=== PATIENT | male | born 1980 | race Caucasian/White ===

== ENCOUNTER 2016-10-14 08:51 | Emergency (ER) | payer BC, MEDICAID ==
[2016-10-14 08:59] VITALS: BP 125/81
[2016-10-14] MEDS ORDERED: PROPARACAINE 0.5% OPHTH DROPS 15 ML ONE (09:25)
[2016-10-14] MEDS ORDERED: ERYTHROMYCIN OPHTH OINT 1 GM TUBE ONE (09:25)
--- NOTE | 2016-10-14 09:40 | ED Physician Documentation ---
PD HPI OPHTHO - Stated complaint Stated Complaint: R EYE REDNESS,SWELLING - Chief complaint Chief Complaint: Heent - History obtained from History obtained from: Patient - History of Present Illness Timing - onset: Yesterday Timing - details: Gradual onset, Still present Location: Right Quality / character: Aching Associated symptoms: Redness, Swelling, Tearing Contributing factors: Other (Was working yesterday with a weed whacker.) Similar symptoms before: Has not had sx before - Additional information Additional information: The patient is a 36-year-old male who presents with pain and swelling of his right eye. It started yesterday and is worse this morning. He has had redness and drainage of clear fluid. He does not wear corrective lenses. He denies headache or fever. He has no history of similar symptoms in the past. He thinks it may be related to work he was doing yesterday with a weed whacker. Review of Systems Constitutional: denies: Fever Eyes: reports: Irritation Ears: denies: Ear pain Nose: denies: Congestion Throat: denies: Sore throat GI: denies: Nausea, Vomiting Skin: denies: Rash Neurologic: denies: Headache PD PAST MEDICAL HISTORY - Past Medical History Past Medical History: Yes Cardiovascular: None Respiratory: None Neuro: None, Seizure disorder Endocrine/Autoimmune: None - Past Surgical History Past Surgical History: Yes Neuro: Other - Present Medications Home Medications: Ambulatory Orders Medication Instructions Recorded Confirmed Sertraline HCl [Zoloft] 100 mg PO DAILY 10/14/16 10/14/16 - Allergies Allergies/Adverse Reactions: Allergies Allergy/AdvReac Type Severity Reaction Status Date / Time No Known Drug Allergies Allergy Verified 10/14/16 08:59 - Social History Does the pt smoke?: Yes Smoking Status: Current every day smoker Does the pt drink ETOH?: No Does the pt have substance abuse?: No - Immunizations Immunizations: TDAP >10years/unknown PD ED PE NORMAL - Vitals Vital signs reviewed: Yes (normal) - General General: Alert and oriented X 3, Well developed/nourished - HEENT HEENT: Atraumatic, PERRL, EOMI, Pharynx benign, Other (There is swelling of the right upper eyelid, and conjunctival injection of the right eye. There is no purulent drainage. Left conjunctiva is clear. Fluorescein stain and blue light exam reveals no evidence of foreign body or corneal abrasion. The upper lid was everted and no foreign body detected.) - Neck Neck: No adenopathy - Cardiac Cardiac: RRR - Respiratory Respiratory: No respiratory distress - Derm Derm: No rash - Neuro Neuro: Alert and oriented X 3, Normal speech PD ED PE EXPANDED - Eyes Eyes: Visual acuity - see nn, PERRL, Normal accommodation, EOMI, Right eye, Eyelid swelling, No eyelid FB (everted), Injected conj/sclera, Anterior chambers clear. No: Exudate, Corneal FB, Corneal abrasion, Fluorescein uptake Results - Vitals Vitals: Oxygen O2 Source Room air PD MEDICAL DECISION MAKING - ED course Complexity details: considered differential, d/w patient ED course: The patient's presentation is most consistent with conjunctivitis of the right eye. Treatment in the emergency department included administration of erythromycin ophthalmic ointment. I discussed with him the expected course of illness, treatment with antibiotic ophthalmic ointment, as well as potentially worrisome signs or symptoms that should prompt reevaluation in the emergency department. Departure - Departure Disposition: 01 Home, Self Care Clinical Impression: Conjunctivitis, right eye Qualifiers: Conjunctivitis type: acute Acute conjunctivitis type: unspecified Qualified Code(s): H10.31 - Unspecified acute conjunctivitis, right eye Condition: Stable Instructions: ED Conjunctivitis Nonspecific Follow-Up: Ariella Baker PA-C [Provider Admit Priv/Credential] - Comments: 1) Administer antibiotic ointment in your right eye four times daily for the next two days. 2) Follow up with your primary physician or return to Emergency if not improving within two to three days, or if getting worse. Discharge Date/Time: 10/14/16 09:42
== END 2016-10-14 09:42 | disposition home or self-care (01) ==
LOC: ED 08:51
DX: H10.31 Unspecified acute conjunctivitis, right eye (principal); F17.200 Nicotine dependence, unspecified, uncomplicated
CPT/HCPCS: 99283; J3490

== ENCOUNTER 2017-06-17 14:56 | Outpatient (CLI) | payer BC | END 2017-06-17 14:57 | disposition critical access hospital (66) | LOC: EMS 14:56 | PROVIDERS: ATTEND Surgery | DX: R56.9 Unspecified convulsions (principal) | CPT/HCPCS: A0425; A0429 ==

== ENCOUNTER 2017-06-17 15:06 | Emergency (ER) | payer BC ==
[2017-06-17] MEDS ORDERED: SODIUM CHLORIDE 0.9% 1,000 ML IV ONE (15:13)
--- NOTE | 2017-06-17 15:15 | ED Physician Documentation ---
PD HPI SEIZURE - Stated complaint Stated Complaint: SZ ? - History obtained from History obtained from: Patient, EMS - History of Present Illness Timing - onset: Other (37-year-old gentleman with history of seizure disorder. He was recently jailed and he says well in detention he was not getting his Depakote. He restarted it last night. Last seizure was in 2016. He was driving today and started to have an auditory aura and pulled over. Apparently called someone and that was forwarded to I,, he does not remember any of that but he was postictal when the ambulance got there. He now feels back to normal except for a headache and he feels like he is dehydrated. The headache is normal after a seizure for him. He was not incontinent.) Review of Systems Constitutional: denies: Fever, Chills Ears: reports: Reviewed and negative Cardiac: reports: Reviewed and negative Respiratory: reports: Reviewed and negative PD PAST MEDICAL HISTORY - Past Medical History Cardiovascular: None Respiratory: None Neuro: None, Seizure disorder Endocrine/Autoimmune: None - Past Surgical History Past Surgical History: Yes Neuro: Other - Present Medications Home Medications: Ambulatory Orders Medication Instructions Recorded Confirmed Sertraline HCl [Zoloft] 100 mg PO DAILY 10/14/16 06/17/[address] [Depakote Dr] 450 mg PO DAILY 06/17/17 06/17/17 - Allergies Allergies/Adverse Reactions: Allergies Allergy/AdvReac Type Severity Reaction Status Date / Time No Known Drug Allergies Allergy Verified 06/17/17 15:13 - Social History Does the pt smoke?: Yes Smoking Status: Current every day smoker Does the pt drink ETOH?: No Does the pt have substance abuse?: No - Immunizations Immunizations: TDAP >10years/unknown PD ED PE NORMAL - Vitals Vital signs reviewed: Yes - General General: Alert and oriented X 3, No acute distress - HEENT HEENT: PERRL, EOMI, Pharynx benign - Neck Neck: Supple, no meningeal sign, No bony TTP - Cardiac Cardiac: RRR, No murmur - Respiratory Respiratory: No respiratory distress, Clear bilaterally - Abdomen Abdomen: Non tender - Extremities Extremities: No deformity, No tenderness to palpate, Normal ROM s pain - Neuro Neuro: Alert and oriented X 3, 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 Eye Opening: Spontaneous Motor: Obeys Commands Verbal: Oriented GCS Score: 15 - Psych Psych: Normal mood, Normal affect Results - Vitals Vitals: Vital Signs - 24 hr 06/17/17 06/17/17 06/17/17 15:15 15:30 16:06 Temperature 36.9 C Heart Rate 115 H 110 H 107 H Respiratory 18 18 18 Rate Blood Pressure 113/66 132/78 H 132/78 H O2 Saturation 96 97 97 06/17/17 16:55 Temperature Heart Rate 106 H Respiratory 20 Rate Blood Pressure 125/81 H O2 Saturation 100 Oxygen O2 Source Room air - EKG (time done) 1513 Rate: Rate (enter#) (113) Rhythm: Sinus tachycardia Callahan: Normal Intervals: Normal IN QRS: LVH Ischemia: Normal ST segments Computer interpretation: Agree with computer - Labs Labs: Laboratory Tests 06/17/17 06/17/17 15:22 15:30 Sodium 135 Potassium 3.8 Chloride 100 L Carbon Dioxide 18 L Anion Gap 17.0 H BUN 14 Creatinine 1.1 Estimated GFR (MDRD) 75 L Glucose 159 H Calcium 9.7 Total Bilirubin 0.5 AST 34 ALT 25 Alkaline Phosphatase 45 Total Protein 7.6 Albumin 4.5 Globulin 3.1 Albumin/Globulin Ratio 1.5 Lipase 16 L Urine Color YELLOW Urine Clarity CLEAR Urine pH 6.0 Ur Specific [place] >=1.030 H Urine Protein 100 H Urine Glucose (UA) NEGATIVE Urine Ketones 15 H Urine Occult Blood SMALL H Urine Nitrite NEGATIVE Urine Bilirubin NEGATIVE Urine Urobilinogen 0.2 (NORMAL) Ur Leukocyte Esterase NEGATIVE Urine RBC 0-5 Urine WBC 0-3 Ur Squamous Epith Cells NONE SEEN Urine Bacteria Rare Urine Casts 0-2 Hyaline Casts Urine Mucus Moderate Strands Ur Microscopic Review INDICATED Urine Culture Comments NOT INDICATED Last Dose Date UNKNOWN Last Dose Time UNKNOWN Valproic Acid 18.6 PD MEDICAL DECISION MAKING - ED course ED course: 37-year-old gentleman with recurrent seizures, subtherapeutic Depakote level because of recent incarceration. He specifically requested no toxicology screen because he is worried that it might be positive for methamphetamines. Departure - Departure Disposition: 01 Home, Self Care Clinical Impression: Seizure, On valproic acid therapy Condition: Good Instructions: ED Seizure Recurrent Comments: As discussed, per [place] law you cannot drive for the next 6 months because of your seizures. Follow-up with your neurologist, continue your Depakote. He may want to do another level on you soon because it was low here at 18.
[2017-06-17 15:42] LABS: ALBUMIN 4.5 g/dL (3.2-5.5); ALBUMIN/GLOBULIN RATIO 1.5 (1.0-2.2); ALKALINE PHOSPHATASE 45 IU/L (42-121); ALT ALANINE AMINOTRANSFERASE 25 IU/L (10-60); AST ASPARTATE AMINOTRANSFERASE 34 IU/L (10-42); BILIRUBIN,TOTAL 0.5 mg/dL (0.2-1.0); BUN - BLOOD UREA NITROGEN 14 mg/dL (6-20); CALCIUM 9.7 mg/dL (8.5-10.3); CARBON DIOXIDE - CO2 18 mmol/L (21-32); CHLORIDE 100 mmol/L (101-111); CREATININE 1.1 mg/dL (0.6-1.2); GFR - MDRD 75 (>89); GLUCOSE 159 mg/dL (70-100); LIPASE 16 U/L (22-51); SODIUM 135 mmol/L (135-145); TOTAL PROTEIN 7.6 g/dL (6.7-8.2); VALPROIC ACID (DEPAKOTE) 18.6 ug/mL
[2017-06-17] MEDS ORDERED: VALPROATE 250 MG/5 ML SOLUTION UDC PO STA (16:07)
[2017-06-17 16:55] VITALS: BP 125/81
[2017-06-17] MEDS ORDERED: LACTATED RINGERS 1,000 ML IV STA (17:07)
[2017-06-17 17:15] LABS: BILIRUBIN,URINE NEGATIVE (NEGATIVE); GLUCOSE, URINE (UA) NEGATIVE (NEGATIVE); KETONES,URINE (UA) 15 mg/dL (NEGATIVE); LEUKOCYTE ESTERASE, URINE NEGATIVE (NEGATIVE); NITRITE,URINE NEGATIVE (NEGATIVE); OCCULT BLOOD,URINE SMALL (NEGATIVE); PROTEIN,URINE 100 mg/dL (NEGATIVE); UROBILINOGEN,URINE 0.2 (NORMAL) E.U./dL (NORMAL)
[2017-06-17 17:16] LABS: CLARITY,URINE CLEAR (CLEAR)
[2017-06-17 17:27] LABS: BACTERIA,URINE Rare /HPF (None Seen); MUCUS,URINE Moderate Strands; RBC,URINE 0-5 /HPF (0-5); SQUAMOUS EPITHELIAL CELL,UR NONE SEEN (<= Few)
[2017-06-17 17:28] LABS: CASTS, URINE 0-2 Hyaline Casts /LPF
== END 2017-06-17 17:40 | disposition home or self-care (01) ==
LOC: EDUNIT# → ED 15:06
DX: G40.909 Epilepsy, unspecified, not intractable, without status epilepticus (principal); F17.200 Nicotine dependence, unspecified, uncomplicated; R79.89 Other specified abnormal findings of blood chemistry; T42.6X6A Underdosing of other antiepileptic and sedative-hypnotic drugs, initial encounter; Z91.138 Patient's unintentional underdosing of medication regimen for other reason; Y92.149 Unspecified place in prison as the place of occurrence of the external cause
CPT/HCPCS: 36415; 80053; 80164; 81001; 83690; 93005; 99284; J3490; J7120; 81003; 87086

== ENCOUNTER 2017-10-28 19:48 | Emergency (ER) | payer BC ==
[2017-10-28] MEDS ORDERED: TETANUS/DIPHTHERIA/PERTUSSIS 0.5 ML SYRINGE IM ONE (20:07)
[2017-10-28] MEDS ORDERED: LIDOCAINE 2%-EPI 1:100000 20 ML MDV SUBQ STA (20:07)
--- NOTE | 2017-10-28 20:09 | ED Physician Documentation ---
PD HPI UPPER EXT INJURY - Stated complaint Stated Complaint: ARM LAC - Chief complaint Chief Complaint: Laceration - History obtained from History obtained from: Patient - History of Present Illness Location: Right (Right-handed gentleman who has unknown tetanus status was working on his car and metal strap lacerated his proximal right forearm anteriorly on the lateral side just prior to arrival. No other injuries.) Review of Systems Constitutional: denies: Fever, Chills Cardiac: reports: Reviewed and negative GI: denies: Abdominal Pain, Nausea PD PAST MEDICAL HISTORY - Past Medical History Past Medical History: Yes Cardiovascular: None Respiratory: None Neuro: Seizure disorder Endocrine/Autoimmune: None Psych: Depression, Anxiety, Bipolar disorder - Past Surgical History Past Surgical History: Yes Neuro: Other - Present Medications Home Medications: Ambulatory Orders Medication Instructions Recorded Confirmed Sertraline HCl [Zoloft] 100 mg PO DAILY 10/14/16 06/17/[address] [Depakote Dr] 450 mg PO DAILY 06/17/17 06/17/17 - Allergies Allergies/Adverse Reactions: Allergies Allergy/AdvReac Type Severity Reaction Status Date / Time No Known Drug Allergies Allergy Verified 06/17/17 15:13 - Social History Does the pt smoke?: Yes Smoking Status: Current every day smoker Does the pt drink ETOH?: No Does the pt have substance abuse?: Yes - Immunizations Immunizations are current?: No Immunizations: TDAP >10years/unknown PD ED PE NORMAL - Vitals Vital signs reviewed: Yes - General General: Alert and oriented X 3, No acute distress - Extremities Extremities: Other (Proximal right forearm, lateral side, distal to the antecubital fossa, there is a 2 cm linear laceration in the subcutaneous fat with normal flexor tendon strength of all 5 digits and normal sensation in all areas of the hand.) - Neuro Neuro: Alert and oriented X 3, Normal speech Results - Vitals Vitals: Vital Signs - 24 hr 10/28/17 19:51 Temperature 36.1 C L Heart Rate 72 Respiratory 16 Rate Blood Pressure 109/73 O2 Saturation 99 Oxygen O2 Source Room air Procedures - Laceration (location) R forearm Length in cm: 2 Wound type: Linear Neurovascular status: Sensory intact, Motor intact, Vascular intact Tendon involvement: Tendon intact Anesthesia: Lidocaine 1% with epi Wound Preparation: Betadine, Irrigated copiously NS Skin layer closure: Nylon, Interrupted, Size #-0 - enter number (4-0), Sutures - enter # (4) Other: Tetanus booster given Complexity: Simple PD MEDICAL DECISION MAKING - Sepsis Event Vital Signs: Vital Signs - 24 hr 10/28/17 19:51 Temperature 36.1 C L Heart Rate 72 Respiratory 16 Rate Blood Pressure 109/73 O2 Saturation 99 Oxygen O2 Source Room air Departure - Departure Disposition: 01 Home, Self Care Clinical Impression: Laceration Condition: Good Record reviewed to determine appropriate education?: Yes Instructions: ED Laceration All Comments: Come back for any signs of infection which would include: Redness, swelling, drainage, increased pain, or fevers. Follow-up with your physician in 14 days for suture removal.
[2017-10-28 20:42] VITALS: BP 142/92
== END 2017-10-28 20:41 | disposition home or self-care (01) ==
LOC: ED 19:48
DX: S51.811A Laceration without foreign body of right forearm, initial encounter (principal); W26.8XXA Contact with other sharp object(s), not elsewhere classified, initial encounter; Y92.009 Unspecified place in unspecified non-institutional (private) residence as the place of occurrence of the external cause; Z23 Encounter for immunization; F17.200 Nicotine dependence, unspecified, uncomplicated
CPT/HCPCS: 12001; 90471; 99282; 99283

== ENCOUNTER 2018-04-23 13:07 | Outpatient (CLI) | payer BC | END 2018-04-23 13:08 | disposition critical access hospital (66) | LOC: EMS 13:07 | PROVIDERS: ATTEND Surgery | DX: R56.9 Unspecified convulsions (principal); S09.90XA Unspecified injury of head, initial encounter; W07.XXXA Fall from chair, initial encounter | CPT/HCPCS: A0425; A0427 ==

== ENCOUNTER 2018-04-23 13:46 | Emergency (ER) | payer BC ==
[2018-04-23] MEDS ORDERED: SODIUM CHLORIDE 0.9% 1,000 ML IV ONE ×2 (14:18→15:46)
--- NOTE | 2018-04-23 14:20 | ED Physician Documentation ---
PD HPI SEIZURE - Stated complaint Stated Complaint: SEIZURE - Chief complaint Chief Complaint: Neuro - History obtained from History obtained from: Patient, Family, EMS - History of Present Illness Timing - onset: Today Witnessed: Witnessed Number of seizures: Single Description of seizure activity: Generalized Injury during seizure: Bit tongue History of seizures: Known seizure disorder Contributing factors: Off meds Similar symptoms before: Diagnosis (seizure) Recently seen: Not recently seen - Additional information Additional information: 38-year-old male with a prior history of substance abuse has a known seizure disorder and he has been noncompliant with his medication for about 1 year. He is now 142 days sober and he was at today when he had a he told somebody that he felt like he might have a seizure then he had a syncopal episode fell hit his head and had a seizure. He is brought to the hospital now by ambulance he has some amnesia for the event itself and is now past his postictal period. He does state that he has been working full-time on being sober he is not currently working he denies any alcohol use and he denies any illicit drug use. He states that he is taking his antidepressant and he took his usual medications this morning and he does state that he usually is only drinking coffee and he does not feel that he is had much to drink today or yesterday. Review of Systems Constitutional: denies: Fever Eyes: denies: Decreased vision Ears: denies: Ear pain Nose: denies: Rhinorrhea / runny nose, Congestion Throat: denies: Sore throat Cardiac: denies: Chest pain / pressure, Palpitations Respiratory: denies: Dyspnea, Cough GI: denies: Abdominal Pain, Nausea, Vomiting : denies: Dysuria, Frequency Skin: denies: Rash Musculoskeletal: denies: Neck pain, Back pain, Extremity pain Neurologic: reports: Syncope, Seizure, Headache, Head injury, LOC. denies: Generalized weakness, Focal weakness, Numbness PD PAST MEDICAL HISTORY - Past Medical History Past Medical History: No Cardiovascular: None Respiratory: None Neuro: Seizure disorder Endocrine/Autoimmune: None GI: None : None HEENT: None Psych: Depression, Anxiety, Bipolar disorder Musculoskeletal: None Derm: None - Past Surgical History Past Surgical History: Yes Neuro: Other - Present Medications Home Medications: Ambulatory Orders Medication Instructions Recorded Confirmed Sertraline HCl [Zoloft] 100 mg PO DAILY 10/14/16 06/17/17 Divalproex [Hernan Murray] 450 mg PO DAILY 06/17/17 06/17/17 - Allergies Allergies/Adverse Reactions: Allergies Allergy/AdvReac Type Severity Reaction Status Date / Time No Known Drug Allergies Allergy Verified 04/23/18 13:59 - Social History Does the pt smoke?: Yes Smoking Status: Current every day smoker Does the pt drink ETOH?: No Does the pt have substance abuse?: Yes - Immunizations Immunizations are current?: No Immunizations: TDAP >10years/unknown - POLST Patient has POLST: No PD ED PE NORMAL - Vitals Vital signs reviewed: Yes (tachy ) - General General: Alert and oriented X 3, No acute distress, Well developed/nourished - HEENT HEENT: PERRL, EOMI, Ears normal, Pharynx benign, Other (There is a bruise to the right forehead. The mucous membranes are dry. 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, No motor deficit, No sensory deficit, Normal speech Eye Opening: Spontaneous Motor: Obeys Commands Verbal: Oriented GCS Score: 15 - Psych Psych: Normal mood, Normal affect Results - Vitals Vitals: Vital Signs - 24 hr 04/23/18 04/23/18 04/23/18 13:53 14:06 14:36 Temperature 35.6 C L Heart Rate 112 H 105 H 88 Respiratory 15 23 24 Rate Blood Pressure 129/79 132/89 H 110/76 O2 Saturation 91 L 91 L 98 04/23/18 04/23/18 15:06 15:30 Temperature Heart Rate 86 91 Respiratory 21 25 H Rate Blood Pressure 112/77 130/87 H O2 Saturation 97 95 Oxygen O2 Source Room air - Labs Labs: Laboratory Tests 04/23/18 04/23/18 04/23/18 14:35 14:35 14:35 WBC 6.3 RBC 4.84 Hgb 15.5 Hct 45.3 MCV 93.6 MCH 32.1 H MCHC 34.3 RDW 13.4 Plt Count 246 MPV 7.6 Neut # (Auto) 4.5 Lymph # (Auto) 1.2 L Dawes # (Auto) 0.4 Eos # (Auto) 0.1 Baso # (Auto) 0.0 Absolute Nucleated RBC 0.00 Nucleated RBC % 0.1 Sodium 135 Potassium 4.1 Chloride 104 Carbon Dioxide 22 Anion Gap 9.0 BUN 18 Creatinine 1.1 Estimated GFR (MDRD) 75 L Glucose 114 H Calcium 8.9 Total Bilirubin 0.8 AST 27 ALT 24 Alkaline Phosphatase 42 Troponin I < 0.04 Total Protein 7.6 Albumin 4.2 Globulin 3.4 Albumin/Globulin Ratio 1.2 Lipase 24 Urine Color Urine Clarity Urine pH Ur Specific [place] Urine Protein Urine Glucose (UA) Urine Ketones Urine Occult Blood Urine Nitrite Urine Bilirubin Urine Urobilinogen Ur Leukocyte Esterase Urine RBC Urine WBC Ur Squamous Epith Cells Urine Bacteria Urine Casts Ur Microscopic Review Urine Culture Comments Ethyl Alcohol < 5.0 04/23/18 15:20 WBC RBC Hgb Hct MCV MCH MCHC RDW Plt Count MPV Neut # (Auto) Lymph # (Auto) Dawes # (Auto) Eos # (Auto) Baso # (Auto) Absolute Nucleated RBC Nucleated RBC % Sodium Potassium Chloride Carbon Dioxide Anion Gap BUN Creatinine Estimated GFR (MDRD) Glucose Calcium Total Bilirubin AST ALT Alkaline Phosphatase Troponin I Total Protein Albumin Globulin Albumin/Globulin Ratio Lipase Urine Color YELLOW Urine Clarity CLEAR Urine pH 6.0 Ur Specific [place] >=1.030 H Urine Protein 100 H Urine Glucose (UA) NEGATIVE Urine Ketones NEGATIVE Urine Occult Blood TRACE-LYSE Urine Nitrite NEGATIVE Urine Bilirubin NEGATIVE Urine Urobilinogen 0.2 (NORMAL) Ur Leukocyte Esterase NEGATIVE Urine RBC 0-5 Urine WBC 0-3 Ur Squamous Epith Cells NONE SEEN Urine Bacteria None Seen Urine Casts 6-10 Hyaline Casts Ur Microscopic Review INDICATED Urine Culture Comments NOT INDICATED Ethyl Alcohol - Rads (name of study) CT head without Radiology: Prelim report reviewed (Pressure: 1. No acute intracranial CT abnormality. There is no evidence of hemorrhage or mass-effect. 2. There is right frontal encephalomalacia deep to the craniotomy defect.), EMP read indepedently, See rad report Procedures - IVC sono (time) 1410 Bedside IVC sono: IVC measures (cm) (0.93), IVC collapsed c insp (cm) (complete), Dehydration (est 2 liter deficit) PD MEDICAL DECISION MAKING - ED course Complexity details: reviewed old records, reviewed results, re-evaluated patient, considered differential, d/w patient, d/w family ED course: 38-year-old male with a history of seizure disorder who has been noncompliant with his medication for the past year has had a syncopal episode and seizure following that and here in the emergency department he is found to be significantly dehydrated. He has no other specific reason to have seizure to day. He does not have URI he denies sleep deprivation denies drug or alcohol use. IV saline is begun and CT is remarkable only for the previously established encephalomalacia and no new findings. Blood work is unremarkable urinalysis shows a concentrated urine. Departure - Departure Disposition: 01 Home, Self Care Clinical Impression: Seizure, Dehydration Condition: Stable Instructions: ED Dehydration Follow-Up: Ariella Baker PA-C [Primary Care Provider] - Comments: You have had another seizure today and we have found that you are dehydrated. Do not drive or operate machinery until you have been cleared by your neurologist.
[2018-04-23 14:43] LABS: BASOPHILS % (AUTO) 0.6 %; EOSINOPHILS # (AUTO) 0.1 10^3/uL (0.0-0.7); HGB - HEMOGLOBIN 15.5 g/dL (14.0-18.0); LYMPHOCYTES # (AUTO) 1.2 10^3/uL (1.5-3.5); LYMPHOCYTES % (AUTO) 18.9 %; MEAN CORPUSCULAR HEMOGLOBIN 32.1 pg (27.0-31.0); MEAN CORPUSCULAR HGB CONC 34.3 g/dL (32.0-36.0); MEAN CORPUSCULAR VOLUME 93.6 fL (80.0-94.0); MEAN PLATELET VOLUME 7.6 fL (7.4-11.4); MONOCYTES # (AUTO) 0.4 10^3/uL (0.0-1.0); MONOCYTES % (AUTO) 6.2 %; NEUTROPHILS # (AUTO) 4.5 10^3/uL (1.5-6.6); NEUTROPHILS % (AUTO) 72.3 %; PLT - PLATELET COUNT 246 10^3/uL (130-450); RED BLOOD COUNT 4.84 10^6/uL (4.70-6.10); RED CELL DISTRIBUTION WIDTH 13.4 % (12.0-15.0); WHITE BLOOD COUNT 6.3 x10^3/uL (4.8-10.8)
[2018-04-23 14:55] LABS: ALBUMIN 4.2 g/dL (3.2-5.5); ALBUMIN/GLOBULIN RATIO 1.2 (1.0-2.2); ALKALINE PHOSPHATASE 42 IU/L (42-121); ALT ALANINE AMINOTRANSFERASE 24 IU/L (10-60); AST ASPARTATE AMINOTRANSFERASE 27 IU/L (10-42); BILIRUBIN,TOTAL 0.8 mg/dL (0.2-1.0); BUN - BLOOD UREA NITROGEN 18 mg/dL (6-20); CALCIUM 8.9 mg/dL (8.5-10.3); CARBON DIOXIDE - CO2 22 mmol/L (21-32); CHLORIDE 104 mmol/L (101-111); CREATININE 1.1 mg/dL (0.6-1.2); GFR - MDRD 75 (>89); GLUCOSE 114 mg/dL (70-100); LIPASE 24 U/L (22-51); SODIUM 135 mmol/L (135-145); TOTAL PROTEIN 7.6 g/dL (6.7-8.2)
--- NOTE | 2018-04-23 15:18 | CT Report ---
Reason: syncope head injury seizure Procedure Date: 04/23/2018 Accession Number: [id number] / [id number] Procedure: CT - Head W/O CPT Code: FULL RESULT: EXAM: CT HEAD EXAM DATE: 04/23/2018 02:50 PM. CLINICAL HISTORY: Syncope head injury seizure. COMPARISON: None. TECHNIQUE: Multiaxial CT images were obtained from the foramen magnum to the vertex. Reformats: Sagittal and coronal. IV contrast: None. In accordance with CT protocol optimization, one or more of the following dose reduction techniques were utilized for this exam: automated exposure control, adjustment of mA and/or KV based on patient size, or use of iterative reconstructive technique. FINDINGS: Parenchyma: There is right high medial frontal encephalomalacia. No clearly acute loss of ricci-white matter differentiation. There is no evidence of mass-effect. No hemorrhage. Extraaxial Spaces: Normal for age. No subdural or epidural collections identified. Ventricles: Normal in size and position. Sinuses and Orbits: Imaged paranasal sinuses, orbits, and mastoids show no significant abnormality. Bones: No evidence of fracture or calvarial defect. There is a left frontal craniotomy defect. Other: None. IMPRESSION: 1. No acute intracranial CT abnormality. There is no evidence of hemorrhage or mass-effect. 2. There is right frontal encephalomalacia deep to a craniotomy defect. RADIA
[2018-04-23 15:29] LABS: BILIRUBIN,URINE NEGATIVE (NEGATIVE); GLUCOSE, URINE (UA) NEGATIVE (NEGATIVE); KETONES,URINE (UA) NEGATIVE (NEGATIVE); LEUKOCYTE ESTERASE, URINE NEGATIVE (NEGATIVE); NITRITE,URINE NEGATIVE (NEGATIVE); OCCULT BLOOD,URINE TRACE-LYSE (NEGATIVE); PROTEIN,URINE 100 mg/dL (NEGATIVE); UROBILINOGEN,URINE 0.2 (NORMAL) E.U./dL (NORMAL)
[2018-04-23 15:30] LABS: CLARITY,URINE CLEAR (CLEAR)
[2018-04-23 15:42] LABS: BACTERIA,URINE None Seen /HPF (None Seen); CASTS, URINE 6-10 Hyaline Casts /LPF; RBC,URINE 0-5 /HPF (0-5); SQUAMOUS EPITHELIAL CELL,UR NONE SEEN (<= Few)
[2018-04-23] MEDS ORDERED: ACETAMINOPHEN 325 MG TABLET PO STA (15:49)
[2018-04-23 16:55] VITALS: BP 121/85
== END 2018-04-23 17:03 | disposition home or self-care (01) ==
LOC: ED 13:46
DX: G40.909 Epilepsy, unspecified, not intractable, without status epilepticus (principal); R55 Syncope and collapse; E86.0 Dehydration; T42.6X6A Underdosing of other antiepileptic and sedative-hypnotic drugs, initial encounter; Z91.128 Patient's intentional underdosing of medication regimen for other reason; S00.83XA Contusion of other part of head, initial encounter; W18.30XA Fall on same level, unspecified, initial encounter; G93.89 Other specified disorders of brain; F17.200 Nicotine dependence, unspecified, uncomplicated
CPT/HCPCS: 36415; 70450; 80053; 80320; 81001; 83690; 84484; 85025; 96360; 96361; 99284; A9270; 81003; 87086

== ENCOUNTER 2018-12-21 18:30 | Outpatient (CLI) | payer BC | END 2018-12-21 18:31 | disposition EMS.NT | LOC: EMS 18:30 | PROVIDERS: ATTEND Surgery | DX: R47.9 Unspecified speech disturbances (principal) ==

== ENCOUNTER 2019-01-18 16:55 | Outpatient (CLI) | payer BC ==
--- NOTE | 2019-01-19 08:17 | MRI Report ---
Reason: SEIZURE DISORDER Procedure Date: 01/18/2019 Accession Number: [id number] / [id number] Procedure: MRI - Brain W/O CPT Code: FULL RESULT: EXAM: MRI BRAIN WITHOUT CONTRAST EXAM DATE: 01/18/2019 04:50 PM. CLINICAL HISTORY: 39-year-old male. SEIZURE DISORDER. COMPARISON: CT head 01/18/2019 TECHNIQUE: Multiplanar, multisequence T1-weighted and fluid-sensitive MR sequences of the brain were performed. Sequences optimized for routine evaluation. Other: None. IV Contrast: None. FINDINGS: Brain Volume: Normal for age. Parenchyma/Dura: The patient is again noted to be status post prior right frontal craniotomy with underlying cystic encephalomalacia and gliosis involving the medial anterior right frontal lobe, particularly the right superior frontal gyrus. There is also thinning of the body of the corpus callosum (series 301 image 66). No mass, acute infarct or hemorrhage. Otherwise no white matter lesions identified elsewhere. No parenchymal foci of susceptibility artifact. No evidence of focal cortical dysplasia, heterotopia, or abnormal gyration. The hippocampi appear qualitatively symmetric and normal in size and signal. Ventricles/Cisterns: No hydrocephalus. Mild ex vacuo dilatation of the anterior body and frontal horn of the right lateral ventricle. No abnormal extra-axial fluid collection or hemorrhage. Orbits: Symmetric and unremarkable. Sella Turcica: The pituitary gland, cavernous sinuses, suprasellar cistern and optic chiasm are unremarkable. IAC: Symmetric and unremarkable. Vasculature: Normal signal flow void is seen in the major arterial structures at the skull base. Sinuses: No acute appearing sinus disease. Bones: Changes from prior right frontal craniotomy. Otherwise unremarkable. The right mastoid air cells are underpneumatized. Other: None. IMPRESSION: 1. The patient is again noted to be status post prior right frontal craniotomy with underlying cystic encephalomalacia and gliosis involving the medial anterior right frontal lobe, particularly the right superior frontal gyrus. There is likely associated thinning of the corpus callosum (series 301 image 66). The gliosis may well represent seizure focus. Recommend correlation with EEG. 2. No MRI evidence of acute or subacute infarct, acute intracranial hemorrhage, mass, midline shift, or hydrocephalus. 3. No evidence of focal cortical dysplasia, heterotopia, or abnormal gyration. The hippocampi appear qualitatively symmetric and normal in size and signal. RADIA
== END 2019-01-18 16:56 | disposition home or self-care (01) ==
LOC: DI 16:55
PROVIDERS: ATTEND Family Medicine
DX: R56.9 Unspecified convulsions (principal); G93.89 Other specified disorders of brain
CPT/HCPCS: 70551

== ENCOUNTER 2019-02-02 11:40 | Outpatient (CLI) | payer BC ==
[2019-02-02 21:39] LABS: TRICHOMONAS VAGINALIS DNA NEGATIVE (NEGATIVE)
[2019-02-03 11:46] LABS: HEPATITIS C ANTIBODY NON-REACTIVE (NON-REACTIVE)
[2019-02-03 11:47] LABS: HIV AG/AB 4TH GEN NON-REACTIVE (NON-REACTIVE)
[2019-02-06 15:52] LABS: HSV 1 IGG TYPE SPECIFIC AB 37.5 index; HSV 2 IGG TYPE SPECIFIC AB 9.6 index
== END 2019-02-02 23:59 | disposition home or self-care (01) ==
LOC: LAB.N 11:40
PROVIDERS: ATTEND Family Medicine
DX: G40.909 Epilepsy, unspecified, not intractable, without status epilepticus (principal); Z11.3 Encounter for screening for infections with a predominantly sexual mode of transmission; S06.9X9S Unspecified intracranial injury with loss of consciousness of unspecified duration, sequela
CPT/HCPCS: 36415; 80201; 81599; 86592; 86695; 86696; 86803; 87389; 87491; 87591; 87661

== ENCOUNTER 2019-02-10 21:32 | Emergency (ER) | payer BC ==
[2019-02-10 21:38] VITALS: BP 128/82
== END 2019-02-10 23:24 | disposition left against medical advice (07) ==
LOC: ED 21:32
DX: Z53.21 Procedure and treatment not carried out due to patient leaving prior to being seen by health care provider (principal)
CPT/HCPCS: 87275; 87276

== ENCOUNTER 2019-02-21 08:10 | Outpatient (CLI) | payer BC ==
[2019-02-21 12:05] LABS: BASOPHILS % (AUTO) 0.8 %; EOSINOPHILS # (AUTO) 0.2 10^3/uL (0.0-0.7); EOSINOPHILS % (AUTO) 3.4 %; HGB - HEMOGLOBIN 14.1 g/dL (14.0-18.0); LYMPHOCYTES # (AUTO) 2.8 10^3/uL (1.5-3.5); LYMPHOCYTES % (AUTO) 53.7 %; MEAN CORPUSCULAR HEMOGLOBIN 31.1 pg (27.0-31.0); MEAN CORPUSCULAR HGB CONC 32.7 g/dL (32.0-36.0); MEAN CORPUSCULAR VOLUME 95.1 fL (80.0-94.0); MEAN PLATELET VOLUME 9.6 fL (7.4-11.4); MONOCYTES # (AUTO) 0.4 10^3/uL (0.0-1.0); MONOCYTES % (AUTO) 7.8 %; NEUTROPHILS # (AUTO) 1.8 10^3/uL (1.5-6.6); NEUTROPHILS % (AUTO) 33.9 %; PLT - PLATELET COUNT 300 10^3/uL (130-450); RED BLOOD COUNT 4.53 10^6/uL (4.70-6.10); RED CELL DISTRIBUTION WIDTH 13.8 % (12.0-15.0); WHITE BLOOD COUNT 5.3 x10^3/uL (4.8-10.8)
[2019-02-21 13:03] LABS: ALBUMIN 4.1 g/dL (3.2-5.5); ALBUMIN/GLOBULIN RATIO 1.4 (1.0-2.2); BILIRUBIN,TOTAL 0.7 mg/dL (0.2-1.0); CALCIUM 8.9 mg/dL (8.5-10.3); CREATININE 0.9 mg/dL (0.6-1.2)
== END 2019-02-21 23:59 | disposition home or self-care (01) ==
LOC: LAB.N 08:10
PROVIDERS: ATTEND Family Medicine
DX: R10.13 Epigastric pain (principal)
CPT/HCPCS: 36415; 80053; 82150; 83690; 85025

== ENCOUNTER 2019-02-23 09:20 | Outpatient (CLI) | payer BC ==
[2019-02-23 19:18] LABS: H. PYLORIS ANTIGEN STL NEGATIVE (Negative)
== END 2019-02-23 23:59 | disposition home or self-care (01) ==
LOC: LAB.R 09:20
PROVIDERS: ATTEND Family Medicine
DX: R10.13 Epigastric pain (principal)
CPT/HCPCS: 82274; 87338; 87493

== ENCOUNTER 2019-04-25 10:37 | Outpatient (CLI) | payer BC ==
--- NOTE | 2019-04-26 03:16 | XRAY Report ---
Reason: FLANK PAIN,RIGHT Procedure Date: 04/25/2019 Accession Number: [id number] / [id number] Procedure: XRN - Abdomen 1 View X-Ray CPT Code: 57941 Final Report FULL RESULT: EXAM: ABDOMEN RADIOGRAPHY EXAM DATE: 04/25/2019 10:58 AM. CLINICAL HISTORY: FLANK Pain, right. COMPARISON: None. TECHNIQUE: 1 view. FINDINGS: Bowel Gas Pattern: Nonobstructive with moderate stool burden. Other: No abnormal calcifications seen. IMPRESSION: Moderate stool burden. RADIA
== END 2019-04-25 10:38 | disposition home or self-care (01) ==
LOC: DI.N 10:37
PROVIDERS: ATTEND Family Medicine
DX: R10.9 Unspecified abdominal pain (principal)
CPT/HCPCS: 74018

== ENCOUNTER 2019-05-01 09:44 | Emergency (ER) | payer BC ==
[2019-05-01 10:41] LABS: BASOPHILS % (AUTO) 0.6 %; EOSINOPHILS # (AUTO) 0.2 10^3/uL (0.0-0.7); EOSINOPHILS % (AUTO) 4.6 %; HGB - HEMOGLOBIN 14.5 g/dL (14.0-18.0); LYMPHOCYTES # (AUTO) 1.9 10^3/uL (1.5-3.5); LYMPHOCYTES % (AUTO) 38.4 %; MEAN CORPUSCULAR HEMOGLOBIN 31.2 pg (27.0-31.0); MEAN CORPUSCULAR HGB CONC 32.6 g/dL (32.0-36.0); MEAN CORPUSCULAR VOLUME 95.7 fL (80.0-94.0); MEAN PLATELET VOLUME 9.1 fL (7.4-11.4); MONOCYTES # (AUTO) 0.5 10^3/uL (0.0-1.0); MONOCYTES % (AUTO) 9.6 %; NEUTROPHILS # (AUTO) 2.3 10^3/uL (1.5-6.6); NEUTROPHILS % (AUTO) 46.4 %; PLT - PLATELET COUNT 257 10^3/uL (130-450); RED BLOOD COUNT 4.65 10^6/uL (4.70-6.10); RED CELL DISTRIBUTION WIDTH 13.4 % (12.0-15.0)
[2019-05-01 10:45] LABS: BILIRUBIN,URINE NEGATIVE (NEGATIVE); GLUCOSE, URINE (UA) NEGATIVE (NEGATIVE); KETONES,URINE (UA) NEGATIVE (NEGATIVE); LEUKOCYTE ESTERASE, URINE NEGATIVE (NEGATIVE); NITRITE,URINE NEGATIVE (NEGATIVE); OCCULT BLOOD,URINE LARGE (NEGATIVE); PROTEIN,URINE NEGATIVE (NEGATIVE); UROBILINOGEN,URINE 0.2 (NORMAL) E.U./dL (NORMAL)
[2019-05-01 10:48] LABS: CLARITY,URINE SL. CLOUDY (CLEAR)
[2019-05-01 10:51] LABS: BACTERIA,URINE Rare /HPF (None Seen); SQUAMOUS EPITHELIAL CELL,UR NONE SEEN (<= Few)
[2019-05-01 10:53] LABS: ALBUMIN 4.1 g/dL (3.2-5.5); ALBUMIN/GLOBULIN RATIO 1.4 (1.0-2.2); BILIRUBIN,TOTAL 0.8 mg/dL (0.2-1.0); CALCIUM 9.1 mg/dL (8.5-10.3); TOTAL PROTEIN 7.1 g/dL (6.7-8.2)
[2019-05-01] MEDS ORDERED: KETOROLAC 30 MG/ML VIAL IVP STA ×2 (10:53→12:27)
--- NOTE | 2019-05-01 10:55 | ED Physician Documentation ---
History of Present Illness - Stated complaint Stated Complaint: R FLANK PX - Chief complaint Chief Complaint: General - Additonal information Additional information: This is a 39-year-old male who presents with right flank pain radiating towards his groin for the last week. Patient states the pain is sharp and can be severe at times seems to come and go currently it is only mild in severity. It radiates towards his testicles, but he does not have any tenderness in his testicles. No testicular penile lesions. He did have some blood in his urine when he did a urine test in the last week, he denies any fever or pain or burning with urination. He has not had a kidney stone in the past. This morning the pain became severe so he came into the emergency department for further evaluation. He has a CT ordered by his primary care provider Dr. Moore which was set to be done this afternoon. He is a previous narcotic addict, and would prefer to avoid narcotic medications. PD PAST MEDICAL HISTORY - Past Medical History Cardiovascular: None Respiratory: None Neuro: Headaches, Seizure disorder Endocrine/Autoimmune: None GI: None : Frequency HEENT: None Psych: Depression, Anxiety, Bipolar disorder Musculoskeletal: None Derm: None - Past Surgical History Past Surgical History: Yes Neuro: Other - Present Medications Home Medications: Ambulatory Orders Medication Instructions Recorded Confirmed Sertraline HCl [Zoloft] 100 mg PO DAILY 10/14/16 06/17/[address] [Depakote Dr] 450 mg PO DAILY 06/17/17 06/17/17 Ibuprofen [Motrin] 600 mg PO Q6H PRN #30 tab 05/01/19 Ondansetron Odt [Zofran] 4 mg TL Q6H PRN #10 tablet 05/01/19 Tamsulosin [Flomax] 0.4 mg PO DAILY #14 capsule 05/01/19 - Allergies Allergies/Adverse Reactions: Allergies Allergy/AdvReac Type Severity Reaction Status Date / Time No Known Drug Allergies Allergy Verified 02/10/19 21:38 - Social History Does the pt smoke?: Yes Smoking Status: Current every day smoker Does the pt drink ETOH?: No Does the pt have substance abuse?: No - Immunizations Immunizations are current?: No Immunizations: TDAP >10years/unknown - POLST Patient has POLST: No PD ED PE NORMAL - Vitals Vital signs reviewed: Yes - General General: Alert and oriented X 3, No acute distress - HEENT HEENT: PERRL - Neck Neck: Supple, no meningeal sign - Cardiac Cardiac: RRR, No murmur - Respiratory Respiratory: Clear bilaterally - Abdomen Abdomen: Soft, Non tender, Non distended - Male Male : Other (Normal-appearing, circumcised penis. There is a reducible right inguinal hernia which is nontender. There is no testicular tenderness. Testicles are normal lie, no scrotal skin changes.) - Derm Derm: Warm and dry - Extremities Extremities: No deformity - Neuro Neuro: Alert and oriented X 3 - Psych Psych: Normal mood, Normal affect Results - Vitals Vitals: Oxygen O2 Source Room air - Labs Labs: Laboratory Tests 05/01/19 05/01/19 05/01/19 10:20 10:33 10:33 WBC 5.0 RBC 4.65 L Hgb 14.5 Hct 44.5 MCV 95.7 H MCH 31.2 H MCHC 32.6 RDW 13.4 Plt Count 257 MPV 9.1 Neut # (Auto) 2.3 Lymph # (Auto) 1.9 Mccreary # (Auto) 0.5 Eos # (Auto) 0.2 Baso # (Auto) 0.0 Absolute Nucleated RBC 0.00 Nucleated RBC % 0.0 Sodium 139 Potassium 4.0 Chloride 110 Carbon Dioxide 23 Anion Gap 6.0 BUN 18 Creatinine 1.0 Estimated GFR (MDRD) 83 L Glucose 89 Calcium 9.1 Total Bilirubin 0.8 AST 18 ALT 28 Alkaline Phosphatase 36 L Total Protein 7.1 Albumin 4.1 Globulin 3.0 Albumin/Globulin Ratio 1.4 Lipase 32 Urine Color DARK YELLOW Urine Clarity SL. CLOUDY Urine pH 6.0 Ur Specific [place] 1.025 Urine Protein NEGATIVE Urine Glucose (UA) NEGATIVE Urine Ketones NEGATIVE Urine Occult Blood LARGE H Urine Nitrite NEGATIVE Urine Bilirubin NEGATIVE Urine Urobilinogen 0.2 (NORMAL) Ur Leukocyte Esterase NEGATIVE Urine RBC 11-25 H Urine WBC 4-5 Ur Squamous Epith Cells NONE SEEN Urine Bacteria Rare Ur Microscopic Review INDICATED Urine Culture Comments NOT INDICATED - Rads (name of study) Ct abd/pelvis Radiology: Other (6mm stone in R prox ureter, no hydro) PD MEDICAL DECISION MAKING - ED course Complexity details: considered differential (nephrolithiasis, UTI, torsion, DORINA) ED course: Pt presents with classic symptoms for kidney stone, but without history of prior imaging or previous stones. No signs of torsion on exam. He is scheduled for a CT this afternoon ordered by his outpt provider, this was obtained in the ED and does show a 6mm R ureteral stone. Urine does not show infection. Kidney function is normal and labs are unremarkable. His pain is well controlled with toradol. He would like to avoid narcotic medications. I discussed expectant management, as well as urology follow up and that some stones of this size will not pass on their own. I prescribed ibuprofen, zofran, and flomax. Pt continues to be well appearing with well-controlled pain and was discharged home. Departure - Departure Disposition: Home, Self Care Clinical Impression: Kidney stone on right side Condition: Good Instructions: ED Stone Renal W Colic Follow-Up: Jose Sierra MD [Provider Admit Priv/Credential] - (For follow up on kidney stone.) Prescriptions: Ibuprofen [Motrin] 600 mg PO Q6H PRN #30 tab PRN Reason: Pain Ondansetron Odt [Zofran] 4 mg TL Q6H PRN #10 tablet PRN Reason: Nausea / Vomiting Tamsulosin [Flomax] 0.4 mg PO DAILY #14 capsule Comments: You have a 6 mm stone in your right ureter. Please take the Flomax, stay well- hydrated, and you may take ibuprofen 600 to 800 mg every 6 hours for pain, you may also try 650 mg of Tylenol every 6 hours for pain. If you develop nausea or vomiting you may use the Zofran. If you are developing severe pain not controlled by these medications, fever, or other concerning symptoms return to the please follow-up with a urologist, particularly if your symptoms are ongoing and not improving after the next week. Discharge Date/Time: 05/01/19 13:20
--- NOTE | 2019-05-01 11:37 | CT Report ---
Reason: R flank pain and hematuria Procedure Date: 05/01/2019 Accession Number: [id number] / [id number] Procedure: CT - Abdomen/Pelvis WO CPT Code: Final Report FULL RESULT: EXAM: CT ABDOMEN AND PELVIS (CT KUB) EXAM DATE: 05/01/2019 11:19 AM. CLINICAL HISTORY: Right flank pain and hematuria. COMPARISONS: None. TECHNIQUE: Routine axial helical CT imaging was performed through the abdomen and pelvis without IV contrast. Reconstructions: Coronal and sagittal. In accordance with CT protocol optimization, one or more of the following dose reduction techniques were utilized for this exam: automated exposure control, adjustment of mA and/or KV based on patient size, or use of iterative reconstructive technique. FINDINGS: Lung Bases: Unremarkable. Right Kidney/Ureter: There is a 6 mm proximal ureteral calculus without significant upstream hydroureteronephrosis and no perinephric fat stranding. An additional nonobstructing 4 mm calculus seen in the right kidney. Left Kidney/Ureter: No stones, hydronephrosis, or hydroureter. No perinephric fat stranding. Other Solid Organs: Noncontrast images of the solid organs are grossly unremarkable. Gallbladder/Bile Ducts: Unremarkable. Peritoneal Cavity: No free fluid, free air or darwin adenopathy. Bowel is grossly unremarkable. Pelvic Organs: No bladder stones or wall thickening. Noncontrast images of the visualized pelvic organs are unremarkable. Vasculature: Unremarkable. Other: None. IMPRESSION: Right 6 mm ureteral calculus without significant upstream hydroureteronephrosis. RADIA
[2019-05-01 12:39] VITALS: BP 138/77
== END 2019-05-01 13:20 | disposition home or self-care (01) ==
LOC: ED 09:44
DX: N20.2 Calculus of kidney with calculus of ureter (principal); F17.200 Nicotine dependence, unspecified, uncomplicated
CPT/HCPCS: 36415; 74176; 80053; 81001; 81003; 83690; 85025; 87086; 96374; 96376; 99281

== ENCOUNTER 2019-05-04 13:42 | Outpatient (CLI) | payer BC ==
--- NOTE | 2019-05-05 10:54 | MRI Report ---
Reason: STRAIN OF EXTENSOR MUSCLE, FASCIA, TENDON FOREARM Procedure Date: 05/04/2019 Accession Number: [id number] / [id number] Procedure: MRI - Elbow RT W/O CPT Code: Final Report FULL RESULT: EXAM: RIGHT ELBOW MRI WITHOUT CONTRAST EXAM DATE: 05/04/2019 03:12 PM. CLINICAL HISTORY: Strain of extensor muscle, fascia, tendon forearm. COMPARISON: None. TECHNIQUE: Multiplanar, multisequence T1-weighted and fluid-sensitive sequences of the elbow without contrast. Other: None. FINDINGS: Bones: No fractures or subluxations. No marrow edema. No bone lesions. Articular Cartilage: Unremarkable. Ligaments: The ulnar collateral, lateral ulnar collateral, radial collateral, and annular ligaments are intact. Tendons: The common flexor and extensor tendons are unremarkable. The distal biceps, brachialis, and triceps tendons are unremarkable. Musculature: No edema or fatty atrophy. In particular, extensor muscles of the proximal forearm appear intact without areas of abnormal increased T2 signal. Other: Mild increased T2 signal in the ulnar nerve. Cubital tunnel appears unremarkable. No masses. No effusion. The subcutaneous tissues are unremarkable. IMPRESSION: No MRI abnormalities in the elbow. Common extensor tendon appears normal. Extensor musculature at the elbow dorsally also appears unremarkable. Mild increased T2 signal in the ulnar nerve, of uncertain consequence. RADIA
== END 2019-05-04 13:43 | disposition home or self-care (01) ==
LOC: DI 13:42
PROVIDERS: ATTEND Orthopaedic Surgery Sports Medicine
DX: S56.5 Injury of other extensor muscle, fascia and tendon at forearm level (principal)

== ENCOUNTER 2019-05-28 17:41 | Outpatient (CLI) | payer BC, MEDICAID ==
--- NOTE | 2019-05-29 13:43 | CT Report ---
Reason: URETAL CALCULUS Procedure Date: 05/28/2019 Accession Number: [id number] / [id number] Procedure: CT - Abdomen/Pelvis WO CPT Code: Final Report FULL RESULT: EXAM: CT ABDOMEN AND PELVIS EXAM DATE: 05/28/2019 06:01 PM. CLINICAL HISTORY: Ureteral CALCULUS. COMPARISONS: ABDOMEN/PELVIS W/O 05/01/2019 11:16 AM. TECHNIQUE: Routine helical CT imaging was performed through the abdomen and pelvis. IV contrast: None. Enteric contrast: No. Reconstructions: Coronal and sagittal. In accordance with CT protocol optimization, one or more of the following dose reduction techniques were utilized for this exam: automated exposure control, adjustment of mA and/or KV based on patient size, or use of iterative reconstructive technique. FINDINGS: Lung Bases: Unremarkable. Liver: Normal. No masses. Gallbladder/Bile Ducts: Unremarkable. Spleen: Normal. Pancreas: Normal. Adrenal Glands: Normal. Kidneys: Right kidney: 5 x 6 mm mid ureteral nonobstructing calcification at L4 level is more inferior than previous. 4 mm nonobstructing upper pole calcification. Left kidney: Unremarkable Peritoneal Cavity/Bowel: Diverticulosis No free fluid, free air or adenopathy. No masses or acute inflammatory process. The appendix is well visualized and normal. Pelvic Organs: Prostate calcifications. Fat-containing right inguinal hernia. Fat in the left inguinal canal. The bladder and visualized pelvic organs are otherwise within normal limits. Vasculature: No aneurysms or other significant abnormality. Bones: No significant abnormality. Other: None. IMPRESSION: 1. Right 5 x 6 mm mid ureteral nonobstructing calcification at L4 level is more inferior than previous. 4 mm nonobstructing upper pole calcification. RADIA
== END 2019-05-28 17:42 | disposition home or self-care (01) ==
LOC: DI 17:41
PROVIDERS: ATTEND Urology
DX: N20.2 Calculus of kidney with calculus of ureter (principal)
CPT/HCPCS: 74176

== ENCOUNTER 2019-06-01 13:44 | Emergency (ER) | payer BC, MEDICAID ==
[2019-06-01] MEDS ORDERED: KETOROLAC 30 MG/ML VIAL IVP STA (14:42)
[2019-06-01] MEDS ORDERED: SODIUM CHLORIDE 0.9% 1,000 ML IV ONE (14:42)
[2019-06-01] MEDS ORDERED: ONDANSETRON 4 MG/2 ML VIAL IVP STA (14:42)
--- NOTE | 2019-06-01 14:43 | ED Physician Documentation ---
PD HPI ABD PAIN - Stated complaint Stated Complaint: FLANK PAIN - Chief complaint Chief Complaint: Abd Pain - History obtained from History obtained from: Patient (39-year-old gentleman with known ureteral colic, scheduled for surgery with Dr. Sierra next week, pain is uncontrolled as his nausea and he would like some Toradol and IV fluids and Zofran. Does not want any narcotics.) Review of Systems Constitutional: denies: Fever, Chills GI: reports: Abdominal Pain, Nausea, Vomiting PD PAST MEDICAL HISTORY - Past Medical History Cardiovascular: None Respiratory: None Neuro: Headaches, Seizure disorder Endocrine/Autoimmune: None GI: None : Frequency HEENT: None Psych: Depression, Anxiety, Bipolar disorder Musculoskeletal: None Derm: None - Past Surgical History Past Surgical History: Yes Neuro: Other - Present Medications Home Medications: Ambulatory Orders Medication Instructions Recorded Confirmed Sertraline HCl [Zoloft] 100 mg PO DAILY 10/14/16 06/17/[address] [Depakote Dr] 450 mg PO DAILY 06/17/17 06/17/17 Ibuprofen [Motrin] 600 mg PO Q6H PRN #30 tab 05/01/19 Ondansetron Odt [Zofran] 4 mg TL Q6H PRN #10 tablet 05/01/19 Tamsulosin [Flomax] 0.4 mg PO DAILY #14 capsule 05/01/19 Hydrocodone/Acetaminophen 1 - 2 each PO Q6H PRN #14 tablet 06/01/19 [Hydrocodon-Acetaminophen 5-325] - Allergies Allergies/Adverse Reactions: Allergies Allergy/AdvReac Type Severity Reaction Status Date / Time No Known Drug Allergies Allergy Verified 06/01/19 14:01 - Social History Does the pt smoke?: Yes Smoking Status: Current every day smoker Does the pt drink ETOH?: No Does the pt have substance abuse?: No - Immunizations Immunizations are current?: No Immunizations: TDAP >10years/unknown - POLST Patient has POLST: No PD ED PE NORMAL - Vitals Vital signs reviewed: Yes - General General: Alert and oriented X 3, No acute distress - Abdomen Abdomen: Soft, Non tender - Neuro Neuro: Alert and oriented X 3, Normal speech Results - Vitals Vitals: Vital Signs - 24 hr 06/01/19 13:57 Temperature 36.5 C Heart Rate 81 Respiratory 16 Rate Blood Pressure 142/97 H O2 Saturation 98 Oxygen O2 Source Room air - Labs Labs: Laboratory Tests 06/01/19 14:55 Sodium 139 Potassium 3.8 Chloride 106 Carbon Dioxide 22 Anion Gap 11.0 BUN 18 Creatinine 1.5 H Estimated GFR (MDRD) 52 L Glucose 94 Calcium 9.4 PD MEDICAL DECISION MAKING - ED course ED course: 39-year-old gentleman with known ureteral stone presents with pain, he was feeling much better after Toradol, but going forward given his rising creatinine actually recommend decreasing NSAIDs. Departure - Departure Disposition: Home, Self Care Clinical Impression: Renal colic Condition: Good Record reviewed to determine appropriate education?: Yes Instructions: ED Stone Renal W Colic Prescriptions: Hydrocodone/Acetaminophen [Hydrocodon-Acetaminophen 5-325] 1 - 2 each PO Q6H PRN #14 tablet PRN Reason: pain Comments: Your creatinine is climbing up, this is probably a combination of the NSAIDs and the stone itself. From here on out until you get the stone removed I would try to avoid nonsteroidal anti-inflammatory drugs such as Toradol, ibuprofen, naproxen. Return for new or worsening symptoms. Follow-up with Dr. Sierra next week as scheduled.
[2019-06-01 15:12] LABS: CALCIUM 9.4 mg/dL (8.5-10.3); CREATININE 1.5 mg/dL (0.6-1.2)
[2019-06-01 15:52] VITALS: BP 126/79
== END 2019-06-01 16:21 | disposition home or self-care (01) ==
LOC: ED 13:44
DX: N20.2 Calculus of kidney with calculus of ureter (principal); F17.200 Nicotine dependence, unspecified, uncomplicated
CPT/HCPCS: 36415; 80048; 96361; 96374; 99283

== ENCOUNTER 2020-04-08 12:47 | Emergency (ER) | payer BC, MEDICAID ==
[2020-04-08 12:55] VITALS: BP 130/70
[2020-04-08] MEDS ORDERED: BUFFERED LIDOCAINE 10 ML SYRINGE SUBQ STA (13:17)
--- NOTE | 2020-04-08 13:36 | ED Physician Documentation ---
History of Present Illness - Stated complaint Stated Complaint: right foot lac - Chief complaint Chief Complaint: Laceration - History obtained from History obtained from: Patient - History of Present Illness Timing: Prior to arrival - Additonal information Additional information: 40-year-old male presents the emergency department with a 4 cm laceration on his right medial lower leg. It was sustained this afternoon when he was fixing a chainsaw and kneeled on the ground. He did not realize that there was an open knife on the ground and his he kneeled and then moved his leg the blade to cut through his pants and into the skin. He did have a fair amount of bleeding before coming in. At this time bleeding is controlled with pressure. Last tetanus is 2018. Review of Systems Constitutional: denies: Fever Eyes: reports: Reviewed and negative Nose: reports: Reviewed and negative Throat: reports: Reviewed and negative Cardiac: reports: Reviewed and negative Respiratory: reports: Reviewed and negative GI: reports: Reviewed and negative : reports: Reviewed and negative Skin: reports: Laceration (s) (right lower medial leg) Musculoskeletal: reports: Reviewed and negative PD PAST MEDICAL HISTORY - Past Medical History Past Medical History: Yes Cardiovascular: Angina Respiratory: None Neuro: Headaches, Seizure disorder Endocrine/Autoimmune: None GI: None : Kidney stones HEENT: None Psych: Depression, Anxiety, Bipolar disorder Musculoskeletal: Chronic back pain Derm: None - Past Surgical History Past Surgical History: Yes Neuro: Other - Present Medications Home Medications: Ambulatory Orders Medication Instructions Recorded Confirmed Gabapentin 100 mg PO QPM 02/29/20 Quetiapine Fumarate [Seroquel] 300 mg PO DAILY 02/29/20 Topiramate [Topamax] 100 mg PO DAILY 02/29/20 - Allergies Allergies/Adverse Reactions: Allergies Allergy/AdvReac Type Severity Reaction Status Date / Time No Known Drug Allergies Allergy Verified 04/08/20 12:52 - Social History Does the pt smoke?: Yes Smoking Status: Current every day smoker Does the pt drink ETOH?: No Does the pt have substance abuse?: No - Immunizations Immunizations are current?: No Immunizations: TDAP >10years/unknown - POLST Patient has POLST: No PD ED PE EXPANDED - Extremities Extremities: Right leg (4 cm laceration linear vertical medial lower leg above the ankle.) Results - Vitals Vitals: Vital Signs - 24 hr 12/01/20 12:52 Temperature 36.5 C Heart Rate 77 Respiratory 16 Rate Blood Pressure 130/70 O2 Saturation 100 Oxygen O2 Source Room air Procedures - Laceration (location) right lower medial leg Length in cm: 4 Wound type: Linear Neurovascular status: Sensory intact, Motor intact, Vascular intact Tendon involvement: Tendon intact Anesthesia: Lidocaine 1% Wound Preparation: Chlorhexadine, Irrigated copiously NS Skin layer closure: [place] (5 placed) Other: Patient tolerated well, No complications, Neurovascular intact, Tetanus UTD Complexity: Simple PD MEDICAL DECISION MAKING - ED course Complexity details: reviewed results, d/w patient ED course: 40-year-old male presents the emergency department for evaluation and treatment of a 4 cm vertical linear lesion on the right lower medial leg sustained this afternoon when he kneeled on an open knife blade. The wound was not contaminated and was easily closed with 5 kamilah. His tetanus is up-to-date. Routine wound care and emergent return precautions discussed Departure - Departure Disposition: 01 Home, Self Care Clinical Impression: Laceration of leg excluding thigh Qualifiers: Encounter type: initial encounter Laterality: left Qualified Code(s): S81.812A - Laceration without foreign body, left lower leg, initial encounter Condition: Stable Record reviewed to determine appropriate education?: Yes Instructions: ED Laceration All Follow-Up: SOBIA ECHOLS MD [Provider Admit Priv/Credential] - Comments: Chinedu we placed 5 kamilah into your laceration. These kamilah should be removed in 7 to 10 days. Your tetanus is up-to-date and did not need to be updated today. You will want to be very careful wearing high heels ankle work boots as the constant pressure may irritate the wound and cause infection. These kamilah should be removed at any emergency department, urgent care or primary care office. In 24 hours you may remove the dressing wash gently with warm soap and water, apply antibiotic ointment and a simple bandage. If you have any concerns of infection, fevers redness milky drainage please return to the emergency department
== END 2020-04-08 13:51 | disposition home or self-care (01) ==
LOC: ED 12:47
DX: S81.811A Laceration without foreign body, right lower leg, initial encounter (principal); W26.0XXA Contact with knife, initial encounter; Y93.89 Activity, other specified; F17.200 Nicotine dependence, unspecified, uncomplicated
CPT/HCPCS: 12002; 99281

== ENCOUNTER 2020-04-16 12:33 | Outpatient (CLI) | payer BC, MEDICAID ==
--- NOTE | 2020-04-16 16:40 | CARDIAC PROCEDURE NOTE ---
DATE OF SERVICE: 04/16/2020 Physician: Aubree Delong MD, [facility] INDICATION: Chest pain. DESCRIPTION OF PROCEDURE: After signing informed consent, the patient underwent a Kareem-protocol treadmill stress test with nuclear myocardial perfusion imaging. RESTING HEART RATE: 64. PEAK HEART RATE: 162 (90% predicted maximum heart rate for age). RESTING BLOOD PRESSURE: 113/72. PEAK BLOOD PRESSURE: 158/66. The patient exercised for 11 minutes on a Kareem-protocol treadmill stress test. He achieved a peak heart rate of 162 (90% PMHR) and 13.44 METS. The patient had no chest pain with exertion or in recovery. The patient had mild shortness of breath, his oxygen saturation was 95-99% on room air throughout the test. He rated his perceived exertion at 14/20 at peak on the Harjeet scale. RESTING EKG: Normal sinus rhythm, left atrial enlargement, marked LVH voltage, early repolarization. EKG AT PEAK: Diffuse T-wave flattening is seen. SUMMARY: 1. Abnormal resting EKG with marked LVH. 2. Good exercise tolerance. 3. T-wave flattening occurs diffusely, this is nonspecific for ischemia by EKG criteria during an exercise stress test. 4. Nuclear images reported separately and showed: No areas of reperfusion defect or scar, LVEF normal at 61%. IMPRESSION: Normal stress test. RECOMMENDATIONS: Echocardiogram advised to evaluate his LVH by EKG. cc: HENRRY David TD: 04/16/2020 16:24 MTDClayton
--- NOTE | 2020-04-17 10:08 | Nuclear Medicine Report ---
PROCEDURE: Rest and exercise myocardial perfusion SPECT with gated imaging and ejection fraction INDICATIONS: CHEST PAIN RADIOPHARMACEUTICAL: 9.0 mCi Tc-99m Myoview IV at rest and 28.9 mCi Tc-99m Myoview IV at peak exerci se. [id number] was performed. TECHNIQUE: Radiopharmaceutical was injected at peak stress test, and also at rest. SPECT images wer e obtained. SPECT myocardial perfusion images were displayed in short axis, horizontal long axis, an d vertical long axis views. Gated images were reviewed using AutoQUANT software. COMPARISON: None available. FINDINGS: Raw data: There is good myocardial labeling by radiotracer. No significant motion artifacts. Lung- to-heart ratio is 0.36 (normal is less than 0.38 for tetrafosmin tracer). Left ventricle function: Gated images demonstrate normal left ventricle wall thickening. No segment al wall motion abnormality. No transient ischemic dilation; TID is 0.89 (normal less than 1.3). The left ventricle resting end-diastolic volume is normal. Left ventricle stress ejection fraction is 6 1%; normal values are above 45%. Myocardial perfusion: There is a small, mild, extrinsic defect in the septum in the area of the atri oventricular groove, likely secondary to attenuation artifact. There is otherwise normal distribution of activity in the left and right ventricular myocardium. No fixed or reversible perfusion defects to suggest myocardial infarction or ischemia. IMPRESSION: 1. Normal myocardial perfusion images. No evidence for myocardial ischemia or infarct. 2. Normal left ventricular volume and systolic function. 3. Please correlate with stress EKG result. PQRS ATTESTATIONS: Measure 322 - Is this imaging test primarily performed on a low-risk surgery patient for preoperative evaluation within 30 days preceding their low-risk non-cardiac surgery? Low-risk surgery is defined as cardiac or myocardial infarction less than 1%, including (but not limited to) endoscopic pr ocedures, superficial procedures, cataract surgery, and excisional breast surgery: Answer: No Measure 323 - Is this imaging test performed primarily for the monitoring of an asymptomatic patient who had percutaneous coronary intervention on the visit date or within 2 years of the visit date? An swer: No Measure 324 - Is this imaging test performed primarily for the initial detection and risk assessment on an asymptomatic, low coronary heart disease patient? Low CHD risk definition = clinicians should consider the maximum number of available patient factors used to estimate risk based on [place] (A TP III criteria), typically age, gender, diabetes, smoking status, and use of blood pressure medicati on, and integrate age appropriate estimates for missing elements, such as LDL or standard blood press ure. Answer: No Reviewed by: Augustine Goldberg MD on 04/17/2020 10:[address] [facility] Approved by: Augustine Goldberg MD on 04/17/2020 10:[address] [facility] Station ID: [id number]
== END 2020-04-16 12:34 | disposition home or self-care (01) ==
LOC: DI 12:33
PROVIDERS: ATTEND Nurse Practitioner Family
DX: R07.89 Other chest pain (principal); R94.31 Abnormal electrocardiogram [ECG] [EKG]
CPT/HCPCS: 78452; 93017; A9500

== ENCOUNTER 2020-05-07 08:18 | Outpatient (CLI) | payer BC, MEDICAID | END 2020-05-07 08:19 | disposition home or self-care (01) | LOC: DI 08:18 | PROVIDERS: ATTEND Nurse Practitioner Family | DX: I51.7 Cardiomegaly (principal); I87.8 Other specified disorders of veins | CPT/HCPCS: 93306 ==

== ENCOUNTER 2020-05-29 08:00 | Outpatient (CLI) | payer BC, MEDICAID ==
--- NOTE | 2020-05-29 21:19 | XRAY Report ---
PROCEDURE: Elbow 3 View RT INDICATIONS: RIGHT ELBOW PAIN TECHNIQUE: 3 views of the elbow were acquired. COMPARISON: 02/13/2019 FINDINGS: Bones: No fractures or dislocations. No suspicious bony lesions. Soft tissues: No elbow joint effusion. No suspicious soft tissue calcifications. IMPRESSION: Right elbow without radiographic abnormalities. Reviewed by: Kashmir Stewart MD on 05/29/2020 9:18 PM PST Approved by: Kashmir Stewart MD on 05/29/2020 9:18 PM PST Station ID: [id number]
== END 2020-05-29 23:59 | disposition home or self-care (01) ==
LOC: DI.N 08:00
PROVIDERS: ATTEND Physician Assistant
DX: M25.521 Pain in right elbow (principal)

== ENCOUNTER 2020-07-04 15:24 | Outpatient (CLI) | payer BC, MEDICAID | END 2020-07-04 15:25 | disposition home or self-care (01) | LOC: COV 15:24 | PROVIDERS: ATTEND Surgery | DX: Z01.812 Encounter for preprocedural laboratory examination (principal); K40.90 Unilateral inguinal hernia, without obstruction or gangrene, not specified as recurrent; Z20.822 Contact with and (suspected) exposure to COVID-19 ==

== ENCOUNTER 2020-07-08 08:52 | Day surgery (SDC) | payer BC, MEDICAID ==
[~2020-07-08 08:52] MED LIST: ceFAZolin 2 GM/50 ML 2 GM/50 ML BAG IV ONE
[2020-07-08] MEDS ORDERED: LACTATED RINGERS 1,000 ML IV ONE ×2 (08:55→12:04)
--- NOTE | 2020-07-08 09:56 | ANESTHESIA ---
Pre-Anesthesia VS, & Labs - Diagnosis R IH - Procedure R IHR Vital Signs: Temp Pulse Resp BP Pulse Ox 36.1 C L 76 12 126/82 H 98 07/08/20 08:56 07/08/20 08:56 07/08/20 08:56 07/08/20 08:56 07/08/20 08:56 Height: 5 ft 11 in Weight (kg): 80 kg Body Mass Index: 24.5 BMI Classification: Healthy weight - NPO >8 hours - Lab Results Lab results reviewed: Yes Home Medications and Allergies Gabapentin 100 mg PO QPM 02/29/20 Quetiapine Fumarate [Seroquel] 300 mg PO DAILY 02/29/20 Topiramate [Topamax] 100 mg PO DAILY 02/29/20 Allergies/Adverse Reactions: Allergies Allergy/AdvReac Type Severity Reaction Status Date / Time methamphetamine Allergy Unknown Verified 04/09/20 12:13 Anes History & Medical History - Anesthetic History Anesthesia Complications: reports: No previous complications Family history of Anesthesia Complications: Denies Family history of Malignant Hyperthermia: Denies - Medical History Cardiovascular: reports: Angina Pulmonary: reports: None Gastrointestinal: reports: None Urinary: reports: Kidney stones Neuro: reports: Headaches, Seizure disorder Musculoskeletal: reports: Chronic back pain Endocrine/Autoimmune: reports: None Blood Disorders: reports: None Skin: reports: None Smoking Status: Current every day smoker - Surgical History Urologic: reports: Ureterolithotomy (stones) Neurologic: reports: Other Results - EKG Results EKG Comparison: Reviewed EKG Exam General: Alert, Oriented x3, Cooperative Dental: WNL Mouth Openin Fingerbreadth Mallampati classification: I Thyromental Distance: 4-6 cm Cardiovascular: Regular rate, No murmurs Plan Anesthesia Type: General Consent for Procedure(s) Verified and Reviewed: Yes Code Status: Attempt Resuscitation ASA classification: 2-Mild systemic disease Is this case an emergency?: No
[2020-07-08] MEDS ORDERED: fentaNYL 100 MCG/2 ML VIAL ONE (09:57)
[2020-07-08] MEDS ORDERED: MIDAZOLAM 2 MG/2 ML VIAL ONE (09:57)
[2020-07-08] MEDS ORDERED: BUPIVACAINE 0.25% PF 30 ML VIAL ONE (10:18)
--- NOTE | 2020-07-08 10:31 | HISTORY & PHYSICAL EXAMINATION ---
Chief Complaint - Chief Complaint Chief Complaint: right groin bulge History of Present Illness - History Obtained From History obtained from: patient Exam Limitations: none - History of Present Illness HPI Comment/Other: right inguinal hernia for months. progressing in size and symptoms History - Past Medical History Cardiovascular: reports: Angina Respiratory: reports: None Neuro: reports: Headaches, Seizure disorder Endocrine/Autoimmune: reports: None GI: reports: None : reports: Kidney stones HEENT: reports: None Psych: reports: Depression, Anxiety, Bipolar disorder Musculoskeletal: reports: Chronic back pain Derm: reports: None MRSA Hx?: Yes - Past Surgical History Neuro: reports: Other - POLST Patient has POLST: No Meds/Allgy - Home Medications Home Medications: Ambulatory Orders Medication Instructions Recorded Confirmed Gabapentin 100 mg PO QPM 02/29/20 07/08/20 Quetiapine Fumarate [Seroquel] 300 mg PO DAILY 02/29/20 07/08/20 Topiramate [Topamax] 100 mg PO DAILY 02/29/20 07/08/20 - Allergies Allergies/Adverse Reactions: Allergies Allergy/AdvReac Type Severity Reaction Status Date / Time methamphetamine Allergy Unknown Verified 04/09/20 12:13 Review of Systems - Constitutional Constitutional: reports: Fatigue (10 pt ros as above oterwise unremarkable) Exam - Vital Signs Reviewed Vital Signs: Yes Vital Signs: Vital Signs x48h Temp Pulse Resp BP Pulse Ox 07/08/20 08:56 36.1 C L 76 12 126/82 H 98 - Physical Exam General Appearance: positive: No acute distress, Alert Eyes Bilateral: positive: Normal inspection, PERRL ENT: positive: No signs of dehydration Neck: positive: No JVD Respiratory: positive: No respiratory distress Cardiovascular: positive: Regular rate & rhythm Abdomen: positive: Non-tender, No distention, Other (right inguinal hernia present) Conclusion/Plan - Problem List (1) Hernia, inguinal Conclusion/Plan: plan open repair with mesh. parq held and consent obtained - Lab Results Lab results reviewed: Yes
[2020-07-08] MEDS ORDERED: PROPOFOL 200 MG/20 ML VIAL IVP ONE (10:54)
[2020-07-08] MEDS ORDERED: BUPIVACAINE 0.25% PF 30 ML VIAL SUBQ ONE ×2 (10:56→11:43)
[2020-07-08] MEDS ORDERED: ONDANSETRON 4 MG/2 ML VIAL ONE (10:58)
[2020-07-08] MEDS ORDERED: DEXAMETHASONE 4 MG/ML VIAL ONE (10:58)
[2020-07-08] MEDS ORDERED: ePHEDrine 50 MG/ML VIAL IVP PRN (12:14)
[2020-07-08] MEDS ORDERED: METOCLOPRAMIDE 10 MG/2 ML VIAL IVP PRN (12:14)
[2020-07-08] MEDS ORDERED: ATROPINE ABBOJECT 1 MG/10 ML SYRINGE IVP PRN (12:14)
[2020-07-08] MEDS ORDERED: NALOXONE 0.4 MG/ML VIAL IVP PRN (12:14)
[2020-07-08] MEDS ORDERED: MORPHINE 2 MG/ML CARPUJECT IVP PRN (12:14)
[2020-07-08] MEDS ORDERED: ONDANSETRON 4 MG/2 ML VIAL IVP PRN (12:14)
[2020-07-08] MEDS ORDERED: fentaNYL 100 MCG/2 ML VIAL IVP PRN (12:14)
[2020-07-08] MEDS ORDERED: HYDROmorphone 0.5 MG/0.5 ML SYRINGE IVP PRN (12:14)
[2020-07-08] MEDS ORDERED: oxyCODONE 5 MG TABLET PO PRN (12:15)
--- NOTE | 2020-07-08 12:16 | ANESTHESIA POST OP EVALUATION ---
Anesthesia Post Eval - Post Anesthesia Eval Vitals: Last Vital Signs Temp 37.1 C 07/08/20 12:14 Pulse 77 07/08/20 12:14 Resp 21 07/08/20 12:14 BP 123/91 H 07/08/20 12:14 Pulse Ox 94 07/08/20 12:14 CV Function Including HR & BP: positive: Stable Pain Control: positive: Satisfactory Nausea & Vomiting: positive: Negative Mental Status: positive: Patient Participates Respiratory Status: Airway Patent Hydration Status: Satisfactory Anesthesia Complications: positive: None
--- NOTE | 2020-07-08 12:37 | OPERATIVE REPORT ---
Operative Report - General Procedure Date: 07/08/20 Planned Procedure: open right inguinal hernia Pre-Op Diagnosis: right inguinal hernia Procedure Performed: open right inguinal hernia repair with mesh Post Op Diagnosis: recurrent and incarcerated - Procedure Note Primary Surgeon: jolanta aguilar Anesthesia Technique: General LMA, Local Estimated Blood Loss (mL): 0 Findings: bilateral inguinal scars present consistent with bilateral repair as child Complications: none
[2020-07-08] MEDS ORDERED: LACTATED RINGERS 1,000 ML IV SCH (13:00)
[2020-07-08 13:01] VITALS: BP 138/78
--- NOTE | 2020-07-08 13:04 | OPERATIVE REPORT ---
DATE OF SERVICE: 07/08/2020 Physician: Soltiario Magdaleno MD PREOPERATIVE DIAGNOSIS: Right inguinal hernia. POSTOPERATIVE DIAGNOSIS: Right inguinal hernia, recurrent and incarcerated. PROCEDURE PERFORMED: Open repair of incarcerated recurrent right inguinal hernia with mesh. SURGEON: Solitario Magdaleno MD FENCE POST CUTTER: None. ANESTHESIA: Laryngeal mask anesthesia. Local anesthesia with Marcaine. COMPLICATIONS: None. SPECIMEN: Incarcerated preperitoneal adipose tissue removed; however, not sent for pathology. ESTIMATED BLOOD LOSS: None. COMPLICATIONS: None. DRAINS: None. FINDINGS: Incarcerated direct inguinal hernia as well as incarcerated fair amount of preperitoneal adipose tissue. INDICATIONS FOR PROCEDURE: The patient is an active 40-year-old gentleman who has developed a symptomatic right inguinal hernia. He thought he may have had repair as a child. There was no apparent scar in the office or preoperatively. Consent was obtained for open repair. Risks discussed, alternatives discussed, all questions answered and consent obtained. DESCRIPTION OF PROCEDURE: The patient was properly identified and brought to the operating room and placed in supine position. Laryngeal mask anesthesia was induced. Hair was clipped and with a bright lighting scars were evident bilateral inguinal region. A decision was made to continue with open repair as consented. Risks discussed as consented. The procedure had been discussed in detail and consent obtained DETAILS OF THE PROCEDURE: The patient was prepped and draped in a sterile fashion and given preoperative antibiotics. Sequential compression devices were used. A 5 cm incision was made in the direction of Jayce's lines just cephalad of the pubic tubercle. Dissection proceeded with cutting current. The superficial epigastric vein was identified, clamped, divided, and tied with 3-0 Vicryl. Dissection proceeded down to the aponeurosis. This was opened in the direction of its fibers, extending to the external ring. Scar tissue was sharply mobilized defining the anatomy. The iliohypogastric nerve was identified and carefully protected as well as ilioinguinal nerve and the genitofemoral nerve. The cord structures were mobilized and brought up. He had a direct inguinal hernia bulge incarcerated and heavily scarred to the cord structures. This was carefully peeled away and mobilized away from surrounding tissue. The direct defect and floor was repaired and reduced with a 2-0 silk pursestring suture. Approximately 6 x 2.5 cm of incarcerated preperitoneal adipose tissue was mobilized away from the cord structures, clamped, divided, and tied with 3-0 silk. There was no indirect hernia sac. A polypropylene mesh was cut to size and placed Tawana fashion. Sutures were placed over the pubic tubercle along the shelving border of Poupart's ligament and medially along musculature or fascia of the internal oblique. The genitofemoral nerve lay loose between sutures. The iliohypogastric nerve was just medial to the mesh. Ilioinguinal nerve was kept with the cord structures. The medial tail of the mesh was secured to the shelving border of Poupart's ligament with two interrupted 0 Ti-Cron sutures, recreating the internal ring of appropriate size. The aponeurosis was closed with a running 2-0 Vicryl suture. Joshua's was closed with interrupted 3-0 Vicryl suture. Skin was closed with a running 4-0 Monocryl subcuticular suture. Dressing was applied. He tolerated the procedure well. TD: 07/08/2020 12:36 WAQAS
[2020-07-08] MEDS ORDERED: oxyCODONE 5 MG TABLET ONE (13:15)
== END 2020-07-08 08:53 | disposition home or self-care (01) ==
LOC: SDS 08:52
PROVIDERS: ATTEND Surgery
DX: K40.31 Unilateral inguinal hernia, with obstruction, without gangrene, recurrent (principal); F17.200 Nicotine dependence, unspecified, uncomplicated; G40.909 Epilepsy, unspecified, not intractable, without status epilepticus; F41.9 Anxiety disorder, unspecified; F31.9 Bipolar disorder, unspecified; G89.29 Other chronic pain; M54.9 Dorsalgia, unspecified; Z79.899 Other long term (current) drug therapy
CPT/HCPCS: 49521; A9270; C1781; J0690; J7120

== ENCOUNTER 2021-01-05 12:54 | Outpatient (CLI) | payer MEDICAID | END 2021-01-05 12:55 | disposition critical access hospital (66) | LOC: EMS 12:54 | DX: S06.9X1A Unspecified intracranial injury with loss of consciousness of 30 minutes or less, initial encounter (principal); W20.8XXA Other cause of strike by thrown, projected or falling object, initial encounter; Y93.H2 Activity, gardening and landscaping; Y99.0 Civilian activity done for income or pay | CPT/HCPCS: A0425; A0427; A0999 ==

== ENCOUNTER 2021-01-05 13:06 | Emergency (ER) | payer BC, MEDICAID ==
[2021-01-05] MEDS ORDERED: PROPOFOL 500 MG/50 ML 500 MG/50 ML VIAL IV STA (13:17)
[2021-01-05] MEDS ORDERED: fentaNYL 100 MCG/2 ML VIAL IVP STA (13:17)
[2021-01-05 13:20] LABS: VBG HCO3 21.3 mmol/L (23-28); VBG PCO2 39.7 mmHg (41-51); VBG PH 7.347 (7.31-7.41); VBG PO2 173.3 mmHg (25-47); VBG TOTAL CO2 22.5 mmol/L (24-29)
[2021-01-05 13:21] LABS: BASOPHILS # (AUTO) 0.1 10^3/uL (0.0-0.1); BASOPHILS % (AUTO) 0.5 %; EOSINOPHILS # (AUTO) 0.2 10^3/uL (0.0-0.7); EOSINOPHILS % (AUTO) 1.8 %; HCT - HEMATOCRIT 40.8 % (42.0-52.0); HGB - HEMOGLOBIN 13.5 g/dL (14.0-18.0); LYMPHOCYTES # (AUTO) 3.3 10^3/uL (1.5-3.5); LYMPHOCYTES % (AUTO) 32.3 %; MEAN CORPUSCULAR HEMOGLOBIN 31.4 pg (27.0-31.0); MEAN CORPUSCULAR HGB CONC 33.1 g/dL (32.0-36.0); MEAN CORPUSCULAR VOLUME 94.9 fL (80.0-94.0); MEAN PLATELET VOLUME 9.7 fL (7.4-11.4); MONOCYTES # (AUTO) 0.7 10^3/uL (0.0-1.0); MONOCYTES % (AUTO) 6.5 %; NEUTROPHILS % (AUTO) 58.2 %; PLT - PLATELET COUNT 255 10^3/uL (130-450); RED CELL DISTRIBUTION WIDTH 13.5 % (12.0-15.0); WHITE BLOOD COUNT 10.3 x10^3/uL (4.8-10.8)
[2021-01-05] MEDS ORDERED: MANNITOL 20% 500 ML BAG IV ONE (13:28)
[2021-01-05] MEDS ORDERED: MIDAZOLAM 2 MG/2 ML VIAL IVP STA (13:28)
[2021-01-05] MEDS ORDERED: ceFAZolin 1 GM VIAL IVP STA (13:29)
--- NOTE | 2021-01-05 13:29 | ED Physician Documentation ---
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 Evidently was hit by a falling tree on the right side. There was prolonged loss of consciousness, reported to be 6 to 8 minutes. Now vomiting and complaining of severe headache and becoming agitated. Review of Systems Unable to obtain: AMS (Unobtainable due to acuity and altered mental status) PD PAST MEDICAL HISTORY - Past Medical History Cardiovascular: Angina Respiratory: None Neuro: Headaches, Seizure disorder Endocrine/Autoimmune: None GI: None : Kidney stones HEENT: None Psych: Depression, Anxiety, Bipolar disorder Musculoskeletal: Chronic back pain Derm: None - Past Surgical History Past Surgical History: Yes Neuro: Other - Present Medications Home Medications: Ambulatory Orders Medication Instructions Recorded Confirmed Gabapentin 100 mg PO QPM 02/29/20 07/08/20 Quetiapine Fumarate [Seroquel] 300 mg PO DAILY 02/29/20 07/08/20 Topiramate [Topamax] 100 mg PO DAILY 02/29/20 07/08/20 oxyCODONE/ACET 5/325 [Percocet 5 1 each PO Q4-6H PRN #40 tab 07/08/20 mg/325 mg] polyethylene glycoL 3350 [Miralax] 17 gm PO DAILY PRN #30 packet 07/08/20 - Allergies Allergies/Adverse Reactions: Allergies Allergy/AdvReac Type Severity Reaction Status Date / Time methamphetamine Allergy Unknown Verified 04/09/20 12:13 - Social History Does the pt smoke?: Yes Smoking Status: Current every day smoker Does the pt drink ETOH?: No Does the pt have substance abuse?: No - Immunizations Immunizations are current?: No Immunizations: TDAP >10years/unknown - POLST Patient has POLST: No PD ED PE NORMAL - Vitals Vital signs reviewed: Yes - General General: Other (He is alert and oriented to person, he does not seem to be moving the left side of his body, he has a right gaze preference. He has an obvious open depressed right-sided skull fracture.) - Neck Neck: Other (In a c-collar) - Cardiac Cardiac: RRR, No murmur - Respiratory Respiratory: Other (Grossly equal breath sounds) - Abdomen Abdomen: Non tender (With negative fast scan) - Derm Derm: Normal color, Warm and dry - Neuro Neuro: Other (Right gaze preference, not moving the right side of the body. Prior to intubation he was talking and following commands although agitated and vomiting.) Results - Vitals Vitals: Oxygen O2 Source Room air - Labs Labs: Laboratory Tests 01/05/21 01/05/21 01/05/21 13:10 13:10 13:10 WBC 10.3 RBC 4.30 L Hgb 13.5 L Hct 40.8 L MCV 94.9 H MCH 31.4 H MCHC 33.1 RDW 13.5 Plt Count 255 MPV 9.7 Neut # (Auto) 6.0 Lymph # (Auto) 3.3 Grant # (Auto) 0.7 Eos # (Auto) 0.2 Baso # (Auto) 0.1 Absolute Nucleated RBC 0.00 Nucleated RBC % 0.0 PT 12.1 INR 1.1 VBG pH VBG pCO2 VBG pO2 VBG HCO3 VBG Total CO2 VBG O2 Saturation VBG Base Excess Sodium 143 Potassium 2.9 L Chloride 113 H Carbon Dioxide 19 L Anion Gap 11.0 BUN 17 Creatinine 1.1 Estimated GFR (MDRD) 74 L Glucose 171 H Lactic Acid Calcium 9.3 Magnesium 1.9 Total Bilirubin 0.7 AST 28 ALT 27 Alkaline Phosphatase 44 Total Protein 6.9 Albumin 4.0 Globulin 2.9 Albumin/Globulin Ratio 1.4 Ethyl Alcohol < 5.0 01/05/21 01/05/21 13:10 13:10 WBC RBC Hgb Hct MCV MCH MCHC RDW Plt Count MPV Neut # (Auto) Lymph # (Auto) Grant # (Auto) Eos # (Auto) Baso # (Auto) Absolute Nucleated RBC Nucleated RBC % PT INR VBG pH 7.347 VBG pCO2 39.7 L VBG pO2 173.3 H VBG HCO3 21.3 L VBG Total CO2 22.5 L VBG O2 Saturation 99.0 H VBG Base Excess -4.0 L Sodium Potassium Chloride Carbon Dioxide Anion Gap BUN Creatinine Estimated GFR (MDRD) Glucose Lactic Acid 3.0 H* Calcium Magnesium Total Bilirubin AST ALT Alkaline Phosphatase Total Protein Albumin Globulin Albumin/Globulin Ratio Ethyl Alcohol - Rads (name of study) 1v cxr Radiology: EMP read contemporaneously (Endotracheal tube 5 cm above the fabiola without pneumothorax) Procedures - Intubation Provider: Emergency physician Medications: Etomidate (20mg (3rd)), Succinylcholine (150mg (4th)), Lidocaine (100mg (1st)), Fentanyl (100mcg (2nd)) Blade: Glidescope Tube: Size-enter number (8.0), Cuffed Route: Oral (augmented by bougie) Confirmation: Direct visualization, Bilateral breath sounds, End tidal CO2, Pulse ox, Chest xray Complications: No compications PD MEDICAL DECISION MAKING - ED course ED course: 40-year-old gentleman comes in as a full trauma code, obvious severe head injuries with left-sided deficits. He was pretreated with 100 mg of lidocaine and 100 mcg of fentanyl. Then intubated after 20 mg of etomidate, 150 mg of succinylcholine. Of note while being bagged, air came out of the right parietal skull wounds. This of course suggests open communication between the airway and the intracranial contents. Ancef was ordered. Notified the nurse not to place an NG tube because of this. He was taken over to CT which shows massive depressed and open right-sided skull fractures and skull base fractures. Significant pneumocephaly and intracranial blood. He was accepted by Dr. Adrian Muhammad to [facility] and cobras were completed. [facility] was already on standby. Review of the chart shows he is up-to-date on tetanus having received it in 2018. Asked the pharmacist to hang 500 mL of 20% mannitol totaling [address] Head: IMPRESSION: Extensive calvarial trauma has occurred and there is brain parenchymal injury with edema and hemorrhage involving the brain parenchyma at the right frontal and parietal regions, with early effacement of the overlying right cortical sulci and likelihood of significant anticipated additional brain edema and potential for midline shift from right to left. There is both subarachnoid, subdural, and brain parenchymal hemorrhage, mild in overall severity. Comminuted skull fractures are seen both anteriorly and posteriorly on the right, including portions of depressed skull fractures anteriorly on the right. Fractures extend into the right facial area which will be independently reported. Mild pneumocephalus, skull base fracture at the right occipital region has been previously described and extends slightly across the midline on the left towards the foramen magnum. No displacement of the fracture margins in this area is seen. Additional skull base fracture likely is present at the right mastoid air cell regions given extravasation of gas both into the posterior cranial fossa and the skull base extracranial soft tissues in that area. CT C spine: IMPRESSION: Extensive calvarial trauma has occurred and there is brain parenchymal injury with edema and hemorrhage involving the brain parenchyma at the right frontal and parietal regions, with early effacement of the overlying right cortical sulci and likelihood of significant anticipated additional brain edema and potential for midline shift from right to left. There is both subarachnoid, subdural, and brain parenchymal hemorrhage, mild in overall severity. Comminuted skull fractures are seen both anteriorly and posteriorly on the right, including portions of depressed skull fractures anteriorly on the right. Fractures extend into the right facial area which will be independently reported. Mild pneumocephalus, skull base fracture at the right occipital region has been previously described and extends slightly across the midline on the left towards the foramen magnum. No displacement of the fracture margins in this area is seen. Additional skull base fracture likely is present at the right mastoid air cell regions given extravasation of gas both into the posterior cranial fossa and the skull base extracranial soft tissues in that area. CT Abd/Pelvis: IMPRESSION: Lung base posterior atelectasis or pulmonary contusions, no pneumothorax or hemothorax suspected. No fracture identified. Throughout the abdomen and pelvis no visceral injury is seen. - Critical Care Time(min): 45 Time Includes: Direct patient care, Review records, Reassess patient, Document care, Coordinate care, Medical consult, Family consult for tx dec (catalina at bedside, spoke with yoselin Mary by phone) Data interpretation: Labs, Pulse ox Procedures included in critical care time: Peripheral IV Procedures excluded from critical care time: Intubation Departure - Departure Disposition: 02 Transfer Acute Care Hosp Clinical Impression: Open skull fracture Qualifiers: Encounter type: initial encounter Skull bone/location: unspecified skull bone Qualified Code(s): S02.91XB - Unspecified fracture of skull, initial encounter for open fracture Respiratory failure Qualifiers: Chronicity: acute Respiratory failure complication: unspecified whether with hypoxia or hypercapnia Qualified Code(s): J96.00 - Acute respiratory failure, unspecified whether with hypoxia or hypercapnia Traumatic subdural hematoma Qualifiers: Encounter type: initial encounter Loss of consciousness presence/duration: with LOC of 30 min or less Qualified Code(s): S06.5X1A - Traumatic subdural hemorrhage with loss of consciousness of 30 minutes or less, initial encounter Traumatic brain injury Qualifiers: Encounter type: initial encounter Loss of consciousness presence/duration: with LOC of 30 min or less Qualified Code(s): S06.9X1A - Unspecified intracranial injury with loss of consciousness of 30 minutes or less, initial encounter Accidentally struck by tree Qualifiers: Encounter type: initial encounter Qualified Code(s): W20.8XXA - Other cause of strike by thrown, projected or falling object, initial encounter Condition: Critical Discharge Date/Time: 01/05/21 14:04
[2021-01-05 13:30] LABS: INR 1.1 (0.8-1.2); PT - PROTHROMBIN TIME 12.1 secs (9.9-12.6)
[2021-01-05 13:33] LABS: ALBUMIN/GLOBULIN RATIO 1.4 (1.0-2.2); ALKALINE PHOSPHATASE 44 IU/L (42-121); ALT ALANINE AMINOTRANSFERASE 27 IU/L (10-60); AST ASPARTATE AMINOTRANSFERASE 28 IU/L (10-42); BILIRUBIN,TOTAL 0.7 mg/dL (0.2-1.0); BUN - BLOOD UREA NITROGEN 17 mg/dL (6-20); CALCIUM 9.3 mg/dL (8.5-10.3); CARBON DIOXIDE - CO2 19 mmol/L (21-32); CHLORIDE 113 mmol/L (101-111); CREATININE 1.1 mg/dL (0.6-1.2); ETOH - ETHANOL < 5.0 mg/dL; GFR - MDRD 74 (>89); GLUCOSE 171 mg/dL (70-100); MAGNESIUM 1.9 mg/dL (1.7-2.8); POTASSIUM 2.9 mmol/L (3.5-5.0); SODIUM 143 mmol/L (135-145); TOTAL PROTEIN 6.9 g/dL (6.7-8.2)
[2021-01-05] MEDS ORDERED: MIDAZOLAM 2 MG/2 ML VIAL ONE (13:33)
[2021-01-05] MEDS ORDERED: MANNITOL 20% 500 ML IV STA (13:33)
--- NOTE | 2021-01-05 13:47 | XRAY Report ---
PROCEDURE: Chest for Line Placement INDICATIONS: RESP. FAILURE TECHNIQUE: One view of the chest was acquired. COMPARISON: None FINDINGS: Surgical changes and devices: Endotracheal tube tip 5 cm above the fabiola. Lungs and pleura: No pleural effusions or pneumothorax. Lungs are clear. Overlying backboard artifa ct limits assessment. Mediastinum: Mediastinal contours appear normal. Heart size is normal. Bones and chest wall: No suspicious bony lesions. Overlying soft tissues appear unremarkable. IMPRESSION: Endotracheal tube tip 5 cm above the fabiola. No pneumothorax. Reviewed by: Lamine Munoz MD on 01/05/2021 12:46 PM [email or web address] Approved by: Lamine Munoz MD on 01/05/2021 12:46 PM AKDT Station ID: [id number]
--- NOTE | 2021-01-05 13:57 | CONSULTATION NOTE ---
Referring Provider Consult Date: 01/05/21 History of Present Illness - History Obtained From History obtained from: ED and EMS staff Exam Limitations: intubated - History of Present Illness HPI Comment/Other: While logging, by report tree fell on his head and chest. He has an obvious left head injury and on arrival was only moving his right side. Not following commands. Flacid on left. He was intubated and taken urgently to CT. Vital signs were stable History - Past Medical History Cardiovascular: reports: Angina Respiratory: reports: None Neuro: reports: Headaches, Seizure disorder Endocrine/Autoimmune: reports: None GI: reports: None : reports: Kidney stones HEENT: reports: None Psych: reports: Depression, Anxiety, Bipolar disorder Musculoskeletal: reports: Chronic back pain Derm: reports: None MRSA Hx?: Yes - Past Surgical History Neuro: reports: Other - POLST Patient has POLST: No Meds/Allgy - Home Medications Home Medications: Ambulatory Orders Medication Instructions Recorded Confirmed Gabapentin 100 mg PO QPM 02/29/20 07/08/20 Quetiapine Fumarate [Seroquel] 300 mg PO DAILY 02/29/20 07/08/20 Topiramate [Topamax] 100 mg PO DAILY 02/29/20 07/08/20 oxyCODONE/ACET 5/325 [Percocet 5 1 each PO Q4-6H PRN #40 tab 07/08/20 mg/325 mg] polyethylene glycoL 3350 [Miralax] 17 gm PO DAILY PRN #30 packet 07/08/20 - Allergies Allergies/Adverse Reactions: Allergies Allergy/AdvReac Type Severity Reaction Status Date / Time methamphetamine Allergy Unknown Verified 04/09/20 12:13 Exam - Vital Signs Reviewed Vital Signs: Yes - Physical Exam General Appearance: positive: Other (intubated. not moving or responding) Eyes Bilateral: positive: Other (face and injury covered at time seen) Respiratory: positive: No respiratory distress Cardiovascular: positive: Regular rate & rhythm Conclusion/Plan - Problem List (1) Open skull fracture Conclusion/Plan: Agree with ED care. He appears stable for transfer to [place] - Lab Results Fish Bones: 01/05/21 13:10 01/05/21 13:10 - Diagnostic Imaging Results Diagnostic Imaging Results: positive: Read independently (no pneumothorax of significant abdominal injury)
--- NOTE | 2021-01-05 14:03 | CT Report ---
PROCEDURE: Abdomen/Pelvis W INDICATIONS: tree fall on person CONTRAST: IV CONTRAST: Isovue 300 ml: 100 PO CONTRAST: *NO PO CONTRAST TECHNIQUE: After the administration of contrast, 5 mm thick sections acquired from the diaphragms to the sym physis. 5 mm thick coronal and sagittal reformats were acquired. For radiation dose reduction, the following was used: automated exposure control, adjustment of mA and/or kV according to patient size . COMPARISON: None. FINDINGS: Image quality: Excellent. ABDOMEN: Lung bases: Lung bases are mildly abnormal with posterior atelectasis or pulmonary contusions but no lower chest rib fracture or pneumothorax is seen. Heart size is normal. Solid organs: Liver and spleen are normal in size and enhancement. Gallbladder appears normal Bili osvaldo system is non dilated. Pancreas enhances normally. No adrenal nodules. Kidneys demonstrate nor mal size and enhancement, without hydronephrosis. Peritoneum and bowel: Bowel loops demonstrate normal wall thickness and caliber. No free fluid or a ir. Nodes and vessels: No retroperitoneal or mesenteric adenopathy by size criteria. Aorta and inferior vena cava are normal in size. Miscellaneous: No ventral hernias. PELVIS: Genitourinary: Bladder wall thickness is normal. Miscellaneous: No inguinal hernias or adenopathy. Bones: No suspicious bony lesions. No vertebral body compression fractures. IMPRESSION: Lung base posterior atelectasis or pulmonary contusions, no pneumothorax or hemothorax s uspected. No fracture identified. Throughout the abdomen and pelvis no visceral injury is seen. Reviewed by: Mu Bender MD on 01/05/2021 2:02 PM PDT Approved by: Mu Bender MD on 01/05/2021 2:02 PM PDT Station ID: [id number]
[2021-01-05] MEDS ORDERED: IOPAMIDOL-300 50 ML VIAL ONE (14:06)
--- NOTE | 2021-01-05 14:07 | CT Report ---
PROCEDURE: CERVICAL SPINE WO INDICATIONS: head inj TECHNIQUE: Noncontrast 3 mm thick sections acquired from the skull base to the T4 level. Sagittal and coronal r eformats were then constructed. For radiation dose reduction, the following was used: automated exp osure control, adjustment of mA and/or kV according to patient size. COMPARISON: None. FINDINGS: Image quality: Excellent. Bones: No fractures or dislocations involving the cervical spine but there is a partially visualized calvarial fracture extending along the right paramedian occipital bone and traversing across the mid line posteriorly for a slight extent, into the inferior margin of the left occipital bone.. Visualiz ed superior ribs are intact. Soft tissues: Prevertebral soft tissues are normal in thickness. No paravertebral hematomas. No ap ical pneumothoraces. Endotracheal tube extends to the mid clavicular level. Gas within the suboccipi lena soft tissues is noted, consistent with laceration into that area. Gas also is noted near the righ t skull base inferior margin of the mastoid air cells. IMPRESSION: Right paramedian occipital skull fracture inferiorly, tracking diagonally across the midline towards the foramen magnum, minimally displaced. Overlying small amount of gas in the soft tissues is suggest lavern of a laceration in this area, but also additional gas is seen adjacent to the anterior margin of the inferior aspect of the right mastoid air cells potentially an indicator of additional skull fract ure in that area more anteriorly on the right. No cervical fracture or traumatic subluxation seen. Endotracheal tube in normal position. Reviewed by: Mu Bender MD on 01/05/2021 2:06 PM PDT Approved by: Mu Bender MD on 01/05/2021 2:06 PM PDT Station ID: [id number]
--- NOTE | 2021-01-05 14:16 | CT Report ---
PROCEDURE: HEAD WO INDICATIONS: head inj TECHNIQUE: Noncontrast 4.5 mm thick angled axial sections acquired from the foramen magnum to the vertex. For r adiation dose reduction, the following was used: automated exposure control, adjustment of mA and/or kV according to patient size. COMPARISON: None. FINDINGS: Image quality: Excellent. CSF spaces: Basal cisterns are patent. No extra-axial fluid collections. Note is made of pneumocep halus, at the skull base area and more superiorly to a mild degree Ventricles are normal in size and shape. Brain: No midline shift. No intracranial masses but there is brain parenchymal injury with low atte nuation and also both subarachnoid and brain parenchymal mild hemorrhage involving the right frontal region especially prominently, and to a lesser degree the right parietal brain parenchyma. A small am ount of subarachnoid hemorrhage is present in the area of right frontal parietal depressed skull frac tures Hemorrhage. Mensah-white matter interface is normal. Skull and face: Calvarium and visualized facial bones on the left are intact, without suspicious les ions but there is extensive trauma to the right calvarium and partially visualized right facial bones . This includes comminuted fractures at the temporal occipital junction on occipital parietal junctio n on the right, at the lateral wall of the right orbit, and at the midline of the frontal bones. Sinuses: Visualized sinuses and mastoids are clear. IMPRESSION: Extensive calvarial trauma has occurred and there is brain parenchymal injury with edema and hemorrhage involving the brain parenchyma at the right frontal and parietal regions, with early effacement of the overlying right cortical sulci and likelihood of significant anticipated additional brain edema and potential for midline shift from right to left. There is both subarachnoid, subdural, and brain parenchymal hemorrhage, mild in overall severity. Comminuted skull fractures are seen both anteriorly and posteriorly on the right, including portions of depressed skull fractures anteriorly on the right. Fractures extend into the right facial area whi ch will be independently reported. Mild pneumocephalus, skull base fracture at the right occipital region has been previously described and extends slightly across the midline on the left towards the foramen magnum. No displacement of th e fracture margins in this area is seen. Additional skull base fracture likely is present at the righ t mastoid air cell regions given extravasation of gas both into the posterior cranial fossa and the s kull base extracranial soft tissues in that area. Reviewed by: Mu Bender MD on 01/05/2021 2:15 PM PDT Approved by: Mu Bender MD on 01/05/2021 2:15 PM PDT Station ID: [id number]
--- NOTE | 2021-01-05 14:27 | CT Report ---
PROCEDURE: MAXILLOFACIAL WO INDICATIONS: head inj TECHNIQUE: Noncontrast 1.5 mm thick axial images acquired from the mandible through the frontal sinuses, with co liz and sagittal reformatting. For radiation dose reduction, the following was used: automated ex posure control, adjustment of mA and/or kV according to patient size. COMPARISON: None. FINDINGS: Image quality: Excellent. Bones and teeth: There is extensive trauma to the calvarium involving the skull base, right frontopar ietal, left paramedian frontal region, nasal bones bilaterally, lateral wall of the right orbit, righ t temporal bone, and portions of the right frontal parietal junction. From superior to inferior: A left frontal bone fracture extends inferiorly into the left ethmoid air cells and then more inferio rly into the left orbit medial wall. This allows extravasation of a small amount of gas into the medi al left orbit soft tissues. Nasal bones are fractured bilaterally, minimally displaced. There is a ri ght lateral frontoparietal fracture that extends inferiorly into the superior lateral right orbit and orbital wall, with an angulated set of comminuted fragments of the adjacent anterior right temporal bone rotated inwards and depressed by up to 8-10 mm. The lateral right orbital wall is further fractu red inferiorly as is the floor of the orbit and lateral wall of the underlying maxillary sinus. Ptery goid plate fractures may be present on the right, nondisplaced, and not seen on the left. The maxilla appears intact, as does the mandible. Fluid is present within the maxillary sinuses bilaterally and the sphenoid sinus. There is a fracture at the right clivus, nondisplaced. Additional fractures approach the vascular foramen for the right internal carotid artery, slightly displaced. Additional fractures likely are present through the skul l base at the margins of the right mastoid air cells with secondary pneumocephalus present to a mild degree within the posterior cranial fossa and also extravasated into the soft tissues adjacent to the external margin of the mastoid air cells. A posterior skull base fracture is partially visualized an d was better seen by cervical CT scanning traversing from right across the midline towards the left f oramen magnum. Is nondisplaced. Sinuses: Paranasal sinuses are partially aerated, with likely acute fluid levels, but no chronic mike earing mucosal thickening, or mucoceles. Mastoid air cells are aerated normally on the left but show acute partial opacification by fluid on the right associated with the skull base fracture in that ar ea.. Soft tissues: No enlarged lymph nodes. No soft tissue lacerations or debris. Vascular: Visualized vascular structures appear normal in the absence of contrast. Bony vascular fo ramina and canals are intact. IMPRESSION: Extensive trauma to the right cranium and right facial regions present, with pneumocepha indra, skull base fractures, and brain parenchymal injury with early brain parenchymal edema. Please al so refer to the dedicated head CT obtained same day. Reviewed by: Mu Bender MD on 01/05/2021 2:26 PM PDT Approved by: Mu Bender MD on 01/05/2021 2:26 PM PDT Station ID: [id number]
--- NOTE | 2021-01-05 14:32 | CT Report ---
PROCEDURE: CHEST W INDICATIONS: tree fall on person CONTRAST: IV CONTRAST: Isovue 300 ml: 100 PO CONTRAST: *NO PO CONTRAST TECHNIQUE: After the administration of intravenous contrast, images were acquired from the pulmonary apices to t he posterior costophrenic angles. Multiplanar MIP reformats were acquired. For radiation dose reduc tion, the following was used: automated exposure control, adjustment of mA and/or kV according to pa tient size. COMPARISON: None. FINDINGS: Image quality: Excellent. Lungs and pleura: No acute air space opacities are seen anteriorly but there is what appears to be e ither atelectasis or posterior symmetric pulmonary contusions. No pleural effusions or pneumothorax. Central and peripheral airways are patent and normal in caliber. Endotracheal tube positioning nor mal. Mediastinum: Heart size is normal. No pericardial effusion. No mediastinal or hilar adenopathy by size criteria. Thoracic aorta and central pulmonary arteries are normal in size. Esophagus is anika l in caliber. No hiatal hernia. Bones and chest wall: No suspicious bony lesions. No vertebral body compression fractures. No axil gerald or supraclavicular adenopathy by size criteria. The thyroid is normal in size and there are no incidental findings.. Abdomen: Visualized upper abdominal solid organs appear normal. Upper abdominal bowel loops are nor mal in caliber. IMPRESSION: No definite acute trauma over the chest is found. There is either atelectasis or, much less likely, b ilateral posterior symmetric pulmonary contusions in the paraspinous regions. Aspiration also could p roduce this appearance. Endotracheal tube is in normal position. CLINICAL RECOMMENDATION STATEMENTS: In patients <35 years with an ITN detected on CT, MRI, or extrathyroidal ultrasound, the Committee re commends further evaluation with dedicated thyroid ultrasound if the nodule is ?1 cm and has no suspi cious imaging features, and if the patient has normal life expectancy. In patients ?35 years with an ITN detected on CT, MRI, or extrathyroidal ultrasound, the Committee re commends further evaluation with dedicated thyroid ultrasound if the nodule is ?1.5 cm and has no ryan picious imaging features, and if the patient has normal life expectancy. (ACR, 2014) Reviewed by: Mu Bender MD on 01/05/2021 2:31 PM PDT Approved by: Mu Bender MD on 01/05/2021 2:31 PM PDT Station ID: [id number]
[2021-01-05] MEDS ORDERED: IOPAMIDOL-300 50 ML VIAL IVP ONE (15:11)
== END 2021-01-05 14:04 | disposition short-term general hospital (02) ==
LOC: ED 13:06
DX: S02.0XXB Fracture of vault of skull, initial encounter for open fracture (principal); S06.5X1A Traumatic subdural hemorrhage with loss of consciousness of 30 minutes or less, initial encounter; W22.8XXA Striking against or struck by other objects, initial encounter; J96.00 Acute respiratory failure, unspecified whether with hypoxia or hypercapnia; F17.200 Nicotine dependence, unspecified, uncomplicated
CPT/HCPCS: 31500; 36415; 51702; 70450; 70486; 71045; 71260; 72125; 74177; 80053; 80320; 82803; 83605; 83735; 85025; 85610; 96374; 96375; 99291; G0390; Q9967